=== PATIENT | female | born 1945 | race Caucasian/White ===

== ENCOUNTER → 2017-08-21 13:28 | Outpatient (CLI) | payer MEDICARE, OTHER, SELFPAY ==
--- NOTE | 2017-08-21 13:33 | XR_ITS ---
XR chest 2V Ordering Physician: Nasrin Ibarra Patient Age: 72 years: Female HISTORY: ITS.REASON: shortness of breath TECHNIQUE: PA and lateral chest COMPARISON :10/05/[address] abdomen March 2017 & [address] chest 12/08/2014 FINDINGS All compared to 10/05/2015 the area of density at the mid left lung has resolved and clear with only some minimal linear scarring at this site. No acute findings in the left chest. The right chest the density at the medial right base is a stable feature although appears slightly more dense and evident with today's technique versus the previous 2015 CXR. This same appearance seen on CT abdomen & 2014 CT chest. It Reflects the contour of medial right hemidiaphragm, along with the anterior fat pad shadow extending upward. The right mid and upper lung field appear stable since prior studies with no active disease. Heart normal size calcified aortic dominant observed. T-spine intact. IMPRESSION======= .. Nothing definitely acute. COPD. Hyperexpansion. Chronic changes bilaterally. The density at medial right base the stable feature here at, right cardiophrenic angle stable. It reflects anterior fat pad along with configuration the right hemidiaphragm.
== END ==
PROVIDERS: PCP Emergency Medicine; Visit Provider Nurse Practitioner Family
DX: R06.02 Shortness of breath (principal)
CPT/HCPCS: 71046

== ENCOUNTER → 2017-10-30 09:12 | Outpatient (REF) | payer MEDICARE, OTHER, SELFPAY ==
[2017-10-30 13:29] LABS: Basophils # 0.1 K/mm3 (0-0.2); Basophils % 0.8 % (0.1-2.0); Eosinophils # 0.2 K/mm3 (0.0-0.4); Eosinophils % 2.7 % (0.1-12.0); Hematocrit 45.1 % (37.0-47.0); Hemoglobin 14.6 g/dL (12.2-16.2); Lymphocytes # 1.4 K/mm3 (0.7-4.5); Lymphocytes % 22.8 K/mm3 (10-50); Mean Corpuscular HGB Conc 32.4 g/dL (31.8-35.4); Mean Corpuscular Hemoglobin 31.9 pg (27.0-31.2); Mean Corpuscular Volume 98.6 fl (81-99); Mean Platelet Volume 10.4 fl (7.4-10.4); Monocytes # 0.3 K/mm3 (0.1-1.0); Monocytes % 5.4 % (1.7-9.3); Neutrophils # 4.3 K/mm3 (1.8-7.8); Neutrophils % 68.2 % (37.0-80.0); Platelet Count 244 K/mm3 (142-424); Red Blood Count 4.57 M/mm3 (4.20-5.40); Red Cell Distribution Width 12.4 % (11.5-17.5); White Blood Count 6.3 K/mm3 (4.8-10.8)
[2017-10-30 13:57] LABS: Alanine Aminotransferase 24 U/L (12-78); Albumin Level 3.9 gm/dL (3.4-5.0); Albumin/Globulin Ratio 1.2 (1.1-1.8); Alkaline Phosphatase 76 U/L (46-116); Anion Gap 12.8 mEq/L (5-15); Aspartate Amino Transferase 20 U/L (15-37); Bilirubin,Total 0.4 mg/dL (0.2-1.0); Blood Urea Nitrogen 11 mg/dL (7-18); Calcium 9.5 mg/dL (8.5-10.1); Carbon Dioxide 31 mmol/L (21.0-32.0); Chloride 105 mmol/L (98-107); Chol/HDL Ratio 2.2 (1-3.5); Cholesterol 151 mg/dL (140-200); Creatinine,Serum 0.79 mg/dL (0.55-1.02); Estimated Glomerular Filt Rate 72 ml/min (>60); GFR (African American) 87 ML/MIN (>60); Globulin 3.2 gm/dl (1.3-3.2); Glucose 89 mg/dL (74-106); HDL Cholesterol 69 mg/dL (29-89); LDL Cholesterol 59 mg/dL (0-130); Potassium 4.8 mmoL/L (3.5-5.1); Sodium 144 mmol/L (136-145); T4 (Thyroxine) 10.7 ug/dl (4.7-13.3); Thyroid Stimulating Hormone 2.04 uIU/ml (0.358-3.740); Total Protein,Serum 7.1 gm/dL (6.4-8.2); Triglycerides 114 mg/dL (30-200); VLDL Cholesterol 23 mg/dL (0-40)
[2017-10-31 15:40] LABS: Vitamin D 25 Hydroxy 74.9 ng/mL (30.0-100.0)
== END ==
LOC: LAB 09:12
PROVIDERS: Visit Provider Physician Assistant
DX: I10 Essential (primary) hypertension (principal); F41.9 Anxiety disorder, unspecified; E78.5 Hyperlipidemia, unspecified; E55.9 Vitamin D deficiency, unspecified
CPT/HCPCS: 80053; 80061; 82652; 84436; 84443; 85025

== ENCOUNTER → 2017-12-21 09:01 | Outpatient (CLI) | payer MEDICARE, OTHER, SELFPAY ==
--- NOTE | 2017-12-21 09:04 | MM_ITS ---
MM Dig screening mamm BI w/CAD CAD Screening ORDERING PHYSICIAN : ALISHA Carter PATIENT AGE: 72 years GENDER: Female HISTORY. Routine screening mammogram. No hormones no new complaints. Family history. Aunt with breast cancer postmenopausal COMPARISON: Previous mammograms: November 2016, 2015, 2014.. TECHNIQUE: Standard CC and MLO images were obtained. R2 CAD reviewed. FINDINGS: Stable appearing breast bilaterally. Low-density breast with fatty replacement throughout. No dominant mass. Scattered benign calcifications and vascular calcifications bilaterally no significant change since previous studies. Bilateral follow-up in one year adequate. RIGHT BREAST:No no significant new findings of concern LEFT BREAST:No significant new findings of concern. Skin calcifications at the deep medial left breast again noted. Not of concern . IMPRESSION: . Stable mammogram. No significant new findings. Low-density breast Follow-up in one year recommended BI-RADS Category: 1 Negative RECOMMENDED FOLLOW-UP: 1YR - 1 YEAR FOLLOW-UP (A letter has been sent to the patient regarding results of the study.)
== END ==
PROVIDERS: PCP Physician Assistant; Visit Provider Physician Assistant
DX: Z12.31 Encounter for screening mammogram for malignant neoplasm of breast (principal)
CPT/HCPCS: 77067

== ENCOUNTER → 2018-11-13 10:22 | Outpatient (CLI) | payer MEDICARE, OTHER, SELFPAY ==
--- NOTE | 2018-11-13 10:37 | XR_ITS ---
EXAM: XR cervical spine 5V HISTORY: ITS.REASON: NECK PAIN ORDERING PHYSICIAN: Rell Arguelles PATIENT AGE: 73 years COMPARISON: None FINDINGS: Severe degenerative disc disease C3-C4 C5-C6 and C6-C7 with mild degenerative disc disease at C4-C5. There is facet and uncovertebral arthropathy with foraminal narrowing on the right at C3-C4 C5-C6 and C6-C7 and on left at C3-C4 C5-C6 and C6-C7. Prominent facet hypertrophy is present at C3 C4 C5 and C6. No fracture or dislocation. There are cystic changes involving the anterior arch of C1. IMPRESSION: Cervical spondylosis with degenerative disc disease and facet arthritic change with foraminal narrowing as described above
--- NOTE | 2018-11-13 10:37 | XR_ITS ---
XR shoulder LT min 2V HISTORY: ITS.REASON: NEVILLE SHOULDER PAIN ORDERING PHYSICIAN: Rell Arguelles PATIENT AGE: 73 years Comparison: None FINDINGS: No fracture or dislocation. No lytic or blastic change. Mild subacromial stenosis with minimal cortical regularity involving the humeral head laterally which may be seen with rotator cuff disease. IMPRESSION: Subacromial stenosis with cortical irregularity humeral head laterally both of which may be seen with rotator cuff disease
--- NOTE | 2018-11-13 10:37 | XR_ITS ---
XR shoulder RT min 2V HISTORY: ITS.REASON: NEVILLE SHOULDER PAIN ORDERING PHYSICIAN: Rell Arguelles PATIENT AGE: 73 years Comparison: None FINDINGS: No fracture or dislocation. No lytic or blastic change. There is normal mineralization. The joint spaces are well-preserved. No significant degenerative/arthritic changes. No erosive changes evident. There is mild subacromial stenosis. IMPRESSION: Mild subacromial stenosis otherwise negative right shoulder
== END ==
PROVIDERS: PCP Internal Medicine; Visit Provider Internal Medicine
DX: M54.2 Cervicalgia (principal); M25.512 Pain in left shoulder; M25.511 Pain in right shoulder
CPT/HCPCS: 72050; 73030

== ENCOUNTER → 2019-01-11 09:01 | Outpatient (CLI) | payer MEDICARE, OTHER, SELFPAY ==
--- NOTE | 2019-01-11 09:05 | MM_ITS ---
MM Dig screening mamm BI w/CAD ORDERING PHYSICIAN : Rell Arguelles PATIENT AGE: 73 years GENDER: Female COMPARISON: November 2016, 2015, 2017, INDICATION: ITS.Routine: SCREENING. No hormones. No new complaints Family history:. Maternal aunt breast cancer postmenopausal TECHNIQUE: Standard CC and MLO images were obtained. R2 CAD reviewed. FINDINGS: Low-density breast. Minimal fibroglandular elements again seen. Moderate generalized fatty replacement. No suspicious dominant mass or suspicious calcifications. Overall architecture is similar. Bilateral follow-up one year recommended. IMPRESSION: Stable bilateral mammogram. No significant new findings Low density fatty breast BI-RADS Category: 1 Negative RECOMMENDED FOLLOW-UP: 1YR 1 YEAR FOLLOW-UP (A letter has been sent to the patient regarding results of the study.)
== END ==
PROVIDERS: PCP Internal Medicine; Visit Provider Internal Medicine
DX: Z12.31 Encounter for screening mammogram for malignant neoplasm of breast (principal)
CPT/HCPCS: 77067

== ENCOUNTER → 2020-01-20 10:08 | Outpatient (CLI) | payer MEDICARE, OTHER, SELFPAY ==
--- NOTE | 2020-01-20 10:15 | MM_ITS ---
PROCEDURE: MM DIG SCREENING MAMM BI W/CAD Digital Breast Tomosynthesis Included CLINICAL INDICATION: SCREENING There is a history of breast cancer patient's maternal aunt. COMPARISON: [facility] DIG MAMM-SCREEN NEVILLE W/CAD from 12/19/2016 [facility] MM Dig screening mamm BI w/CAD from 12/21/2017 DIG MAMM-SCREEN NEVILLE from 01/11/2019 TECHNIQUE: Standard CC and MLO images and 3D Tomosynthesis was obtained. R2 CAD reviewed. FINDINGS: Breasts are composed primarily of fat with minimal scattered fibroglandular densities throughout each breast. There is faint arterial calcification in each breast. There are few scattered benign-appearing microcalcifications left breast. There is a mole marker left breast. There is no suspicious lesion in either breast and no suspicious microcalcifications IMPRESSION: Fibrofatty parenchyma with no suspicious lesions seen BI-RAD Category: 2 Benign Finding(s) FOLLOW-UP: 1YR 1 Year Follow-up (A letter has been sent to the patient regarding results of the study.) Dictated by: Dr. Jabari Gillette MD 01/21/2020 09:[address] Jabari Gillette MD in [place] 01/21/2020 09:53
== END ==
PROVIDERS: PCP Internal Medicine; Visit Provider Internal Medicine
DX: Z12.31 Encounter for screening mammogram for malignant neoplasm of breast (principal)
CPT/HCPCS: 77063; 77067

== ENCOUNTER → 2020-06-08 10:22 | Outpatient (CLI) | payer MEDICARE, OTHER, SELFPAY ==
[2020-06-08 12:04] LABS: Coronavirus 19 IgG Antibody Negative (Negative); Coronavirus 19 IgM Antibody Negative (Negative)
== END ==
PROVIDERS: Visit Provider Ophthalmology
DX: Z01.818 Encounter for other preprocedural examination (principal); Z98.42 Cataract extraction status, left eye
CPT/HCPCS: 36415; 86328

== ENCOUNTER 2020-06-09 08:07 | Day surgery (SDC) | payer MEDICARE, OTHER, SELFPAY ==
[2020-06-02 14:07] VITALS: BMI 24.2
[2020-06-09 08:58] VITALS: BP 154/73; PULSE 68; RESP 18; TEMP 36.6; O2SAT 97
[2020-06-09 09:51] VITALS: BP 176/81; PULSE 66; RESP 18; O2SAT 100
[2020-06-09 09:56] VITALS: BP 156/76; PULSE 63; RESP 18; O2SAT 100
[2020-06-09 10:01] VITALS: BP 159/77; PULSE 62; RESP 18; O2SAT 100
[2020-06-09 10:06] VITALS: BP 167/74; PULSE 62; RESP 18; O2SAT 100
[2020-06-09 10:11] VITALS: BP 156/75; PULSE 61; RESP 16; TEMP 36.3; O2SAT 100
== END 2020-06-09 10:14 | disposition home or self-care (01) ==
LOC: OR 08:09
PROVIDERS: PCP Internal Medicine; Visit Provider Ophthalmology
DX: H25.813 Combined forms of age-related cataract, bilateral (principal); H02.839 Dermatochalasis of unspecified eye, unspecified eyelid; J44.9 Chronic obstructive pulmonary disease, unspecified; Z85.118 Personal history of other malignant neoplasm of bronchus and lung; I10 Essential (primary) hypertension; M19.90 Unspecified osteoarthritis, unspecified site; E78.5 Hyperlipidemia, unspecified
CPT/HCPCS: 66984; V2632

== ENCOUNTER 2020-06-15 09:12 | Emergency (ER) | payer MEDICARE, OTHER, SELFPAY ==
[2020-06-15 09:13] VITALS: BP 133/58; PULSE 71; RESP 16; TEMP 36.6; O2SAT 98; BMI 24.2
[2020-06-15 09:20] VITALS: BP 133/58; PULSE 71; RESP 16; TEMP 36.7; O2SAT 98; BMI 24.0
--- NOTE | 2020-06-15 09:31 | XR_ITS ---
PROCEDURE: XR FACIAL BONES MIN 3V CLINICAL INDICATION: FALL Posttraumatic pain COMPARISON: No exams were available for comparison FINDINGS: There appears to be a nondisplaced fracture involving the tip of the nasal bone. Patient is edentulous. Other findings:None. IMPRESSION: Nondisplaced fracture involving the tip of the nasal bone Dictated by: Danilo Sanchez MD 06/15/2020 12:16 Danilo Sanchez MD in [place] 06/15/2020 12:16
--- NOTE | 2020-06-15 10:33 | HMH.EDUTC ---
[facility] [place] Disposition Clinical Impression: Nasal bone fracture Qualifiers: Encounter type: initial encounter Fracture type: closed Qualified Code(s): S02.2XXA - Fracture of nasal bones, initial encounter for closed fracture Fall Qualifiers: Encounter type: initial encounter Qualified Code(s): W19.XXXA - Unspecified fall, initial encounter Disposition: Home, Self-Care Condition on Discharge: Good Instructions: Nose Fracture, DI for Nose Fracture Additional Instructions: Follow up with ENT. I put in a referral to Dr. Dolan. Please call her office and get an appointment to follow up there. Take the antibiotics as prescribed. Follow up with your primary care doctor. GO TO THE ER FOR ANY WORSENING SYMPTOMS OR CONCERNS Prescriptions: Amoxicillin [Amoxicillin 500mg Tab] 500 mg PO TID 10 Days #30 tab Transmission Status: Received by [id number] Mupirocin [Bactroban 2% Ointment 22gm tube] 1 applicatio TP TID 7 Days #1 tube Transmission Status: Received by [id number] Referrals: Rell Arguelles [Primary Care Provider] - Gertrudis Dolan MD [Consulting Physician] - Time of Disposition: 10:41 Medical Decision Making - Medical Records Medical records reviewed: No: I reviewed the patient's medical records. - Chau Inquiry Pt receiving controlled substance: No Vital Signs: 06/15/20 09:13 06/15/20 09:20 06/15/20 10:45 Temperature 98 F 98.0 F 98.0 F Temperature Source Oral Oral Pulse Rate 71 Pulse Rate [Radial] 71 71 Respiratory Rate 16 16 16 Blood Pressure 133/58 L Blood Pressure [Right Arm] 133/58 L 133/58 L Blood Pressure Mean [Right Arm] 83 83 Blood Pressure Source [Right Arm] Automatic Cuff Blood Pressure Position [Right Arm] Sitting Sitting 02 Sat by Pulse Oximetry 98 98 Oxygen Delivery Method Room Air Room Air Orders (Tests/Meds): ED MEDICATIONS Discontinued Medications Generic Name Dose Route Start Last Admin Trade Name Freq PRN Reason Stop Dose Admin Tetanus/Reduced Diphtheria/Acell Pertussis 0.5 ml 06/15/20 09:54 06/15/20 10:10 Tet/Diphth/Pert-Adult 0.5ml Syringe IM 06/15/20 09:55 0.5 ml .ONCE ONE Administration - Radiology Data #1 Image(s): Other (facial bones) Image Reviewed: Yes I reviewed the patient's radiology image, Yes I have reviewed radiologist's interpretation Preliminary Findings: Abnormal PROCEDURE: XR FACIAL BONES MIN 3V CLINICAL INDICATION: FALL Posttraumatic pain COMPARISON: No exams were available for comparison FINDINGS: There appears to be a nondisplaced fracture involving the tip of the nasal bone. Patient is edentulous. Other findings:None. IMPRESSION: Nondisplaced fracture involving the tip of the nasal bone Dictated by: Danilo Sanchez MD 06/15/2020 12:16 Danilo Sacnhez MD in [place] 06/15/2020 12:16 [facility] [place] HPI - General Stated complaint: AO [id number] cut to nose, home accidet Time Seen by Provider: 06/15/20 10:33 Mode of Arrival: Ambulatory Source of Information: Patient Limitations: No Limitations Description of Symptoms (Recalled from Triage Doc. by RN): PATIENT STATES SHE FELL AND HIT HER RIGHT SIDE OF HEAD/FACE AND NOSE ON CONCRETE APPROX 2 HOURS AGO. SHE REPORTS SHE RECENTLY HAD CATARACT SURGERY LAST MONDAY AND IS CONCERNED. 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 She came down and hit the bridge of her nose on the concrete side walk. She denies any loss of conciousness or dizziness, loss of memory or any other neurological symptoms. She does c/o pain and swelling of the bridge of her nose. - Related Data Home Medications Medication Instructions Recorded Confirmed albuterol sulf
[2020-06-15 10:45] VITALS: BP 133/58; PULSE 71; RESP 16; TEMP 36.7; O2SAT 98
== END 2020-06-15 10:47 | disposition home or self-care (01) ==
PROVIDERS: Emergency Provider Nurse Practitioner Family; PCP Internal Medicine
DX: S02.2XXA Fracture of nasal bones, initial encounter for closed fracture (principal); W18.00XA Striking against unspecified object with subsequent fall, initial encounter; Y92.014 Private driveway to single-family (private) house as the place of occurrence of the external cause; Z23 Encounter for immunization; J45.909 Unspecified asthma, uncomplicated; I25.10 Atherosclerotic heart disease of native coronary artery without angina pectoris; K21.9 Gastro-esophageal reflux disease without esophagitis; I10 Essential (primary) hypertension; E78.5 Hyperlipidemia, unspecified
CPT/HCPCS: G0463; 70150; 90471; 90715; 99201

== ENCOUNTER → 2020-08-10 09:57 | Outpatient (CLI) | payer MEDICARE, OTHER, SELFPAY ==
[2020-08-10 11:11] LABS: Coronavirus 19 IgG Antibody Negative (Negative); Coronavirus 19 IgM Antibody Negative (Negative)
== END ==
PROVIDERS: Visit Provider Ophthalmology
DX: Z01.812 Encounter for preprocedural laboratory examination (principal); Z11.52 Encounter for screening for COVID-19; H25.11 Age-related nuclear cataract, right eye
CPT/HCPCS: 36415; 86328

== ENCOUNTER 2020-08-11 06:18 | Day surgery (SDC) | payer MEDICARE, OTHER, SELFPAY ==
[2020-08-05 08:25] VITALS: BMI 24.2
[2020-08-11] VITALS (7 sets, daily range): BP systolic 139–153; BP diastolic 63–74; PULSE 60–70; RESP 16–18; TEMP 36.3–36.6; O2SAT 97–100
== END 2020-08-11 08:24 | disposition home or self-care (01) ==
LOC: OR 06:20
PROVIDERS: PCP Internal Medicine; Visit Provider Ophthalmology
DX: H25.813 Combined forms of age-related cataract, bilateral (principal); H02.839 Dermatochalasis of unspecified eye, unspecified eyelid; H57.03 Miosis; M19.90 Unspecified osteoarthritis, unspecified site; J45.909 Unspecified asthma, uncomplicated; I10 Essential (primary) hypertension; E78.5 Hyperlipidemia, unspecified; J44.9 Chronic obstructive pulmonary disease, unspecified; Z85.118 Personal history of other malignant neoplasm of bronchus and lung; Z85.9 Personal history of malignant neoplasm, unspecified; Z86.79 Personal history of other diseases of the circulatory system; Z79.899 Other long term (current) drug therapy
CPT/HCPCS: 66982; V2632

== ENCOUNTER 2020-12-03 19:35 | Emergency (ER) | payer MEDICARE, OTHER, SELFPAY ==
[2020-12-03] VITALS (7 sets, daily range): BP systolic 138–215; BP diastolic 63–95; PULSE 72–80; RESP 13–18; TEMP 36.4–36.8; O2SAT 96–99; BMI 24.7
--- NOTE | 2020-12-03 19:45 | ECG_ITS ---
APPROVED REPORT Exam: Resting ECG HR:77 bpm ECG Measurements Heart Rate 77 AXES AK 138 P 83 QRSd 70 QRS 81 QT 406 T 56 QTc 459 Conclusion Normal sinus rhythm Left ventricular hypertrophy with repolarization abnormality Abnormal ECG Electronically signed by : John Balderas, 12/04/2020 14:59:33
--- NOTE | 2020-12-03 20:19 | CT_ITS ---
PROCEDURE INFORMATION: Exam: CT Abdomen And Pelvis With Contrast Exam date and time: 12/03/2020 8:19 PM Age: 75 years old Clinical indication: Abdominal pain; Acute; Additional info: Abdominal pain, vomiting TECHNIQUE: Imaging protocol: Computed tomography of the abdomen and pelvis with contrast. Radiation optimization: All CT scans at this facility use at least one of these dose optimization techniques: automated exposure control; mA and/or kV adjustment per patient size (includes targeted exams where dose is matched to clinical indication); or iterative reconstruction. Contrast material: ISOVUE; Contrast volume: 75 ml; Contrast route: IV; COMPARISON: ABDPELW/O CT ABD PELVIS W/O CONTRAST 04/01/2017 1:26 PM FINDINGS: Lungs: Nonspecific bibasilar streaky opacities suggest atelectasis or parenchymal scarring. A few adjacent areas of cicatricial bronchiolectasis suggest parenchymal scarring. Heart: The visualized portions of the heart are unremarkable. There is no evidence of pericardial fluid collections. Mediastinal space: A small hiatal hernia is present. The remainder of the stomach is otherwise within range of normal. There is a small amount of fluid present in the distal esophagus. Apparent mild distal esophageal wall thickening could be on the basis of incomplete distension, an small hiatal hernia but cannot exclude mild esophagitis. Liver: There is diffuse decrease in hepatic parenchymal density consistent with fatty infiltration. Gallbladder and bile ducts: The gallbladder is normal. Pancreas: The pancreas is normal. Spleen: The spleen is normal. Adrenal glands: There is a a small nodule posteriorly in the left adrenal gland measuring approximately 6.5 mm. The density of this lesion does not allow definitive diagnosis of a benign adrenal adenoma on this enhanced examination. The adrenal glands are otherwise normal. Kidneys and ureters: There are a few tiny bilateral small renal hypodensities which are too small to accurately characterize. Statistically, these may be cysts. No hydronephrosis. Stomach and bowel: There is a small benign duodenal diverticulum. The duodenum is otherwise unremarkable. Lack of gastrointestinal contrast limits evaluation of bowel. Mild diverticulosis is present in the distal colon. There is no evidence of colitis/diverticulitis. Unopacified loops of small bowel are within range of normal. Apparent mild distal gastric mural thickening could be on the basis of incomplete distension but cannot exclude gastritis or other inflammatory or infiltrative process. Correlate clinically. Appendix: No evidence of appendicitis. Intraperitoneal space: There is no evidence of free intraperitoneal or pelvic fluid. No evidence of intraperitoneal free air. Vasculature: The aorta and iliac arteries demonstrate moderate to severe atherosclerotic calcification. There is no evidence of an abdominal aortic aneurysm. There is no evidence of dissection, leak, rupture, or other acute vascular pathology. There are numerous benign phleboliths in the pelvis. Lymph nodes: No enlarged lymph nodes. Urinary bladder: The bladder is normal. Reproductive: The uterus is either atrophic or absent. The left ovary is normal. The right ovary is normal. Bones/joints: The thoracolumbar spine demonstrates mild degenerative changes at multiple levels. There is no evidence of acute fracture. Soft tissues: There is a tiny fat-containing umbilical hernia. There is an ovoid fat density the structure measuring approximately 4.5 by 1.3 by 4.1 cm along the left posterolateral abdominal wall musculature which is most consistent with lipoma. IMPRESSION: 1. S
[2020-12-03 20:31] LABS: Basophils # 0.1 K/mm3 (0-0.2); Basophils % 0.4 % (0.1-2.0); Eosinophils # 0.1 K/mm3 (0.0-0.4); Eosinophils % 0.4 % (0.1-12.0); Hematocrit 44.2 % (37.0-47.0); Hemoglobin 14.7 g/dL (12.2-16.2); Lymphocytes # 1.7 K/mm3 (0.7-4.5); Lymphocytes % 10.3 % (10-50); Mean Corpuscular HGB Conc 33.2 g/dL (31.8-35.4); Mean Corpuscular Hemoglobin 30.9 pg (27.0-31.2); Mean Corpuscular Volume 93.2 fl (81-99); Mean Platelet Volume 9.9 fl (7.4-10.4); Monocytes # 0.6 K/mm3 (0.1-1.0); Monocytes % 3.4 % (1.7-9.3); Neutrophils # 13.8 K/mm3 (1.8-7.8); Neutrophils % 85.4 % (37.0-80.0); Platelet Count 236 K/mm3 (142-424); Red Blood Count 4.75 M/mm3 (4.20-5.40); Red Cell Distribution Width 12.8 % (11.5-17.5); White Blood Count 16.2 K/mm3 (4.8-10.8)
[2020-12-03 20:32] LABS: Chloride 101 mmol/L (98-107); Potassium 3.9 mmoL/L (3.5-5.1); Sodium 138 mmol/L (136-145)
[2020-12-03 20:34] LABS: Blood Urea Nitrogen 15 mg/dl (7-17); Creatinine Clearance Estimated 53 mL/min (50-200); Estimated Glomerular Filt Rate 61 ml/min (>60); GFR (African American) 74 ML/MIN (>60)
[2020-12-03 20:35] LABS: Alanine Aminotransferase 19 U/L (12-78); Albumin Level 4.8 g/dl (3.5-5.0); Albumin/Globulin Ratio 1.5 (1.1-1.8); Alkaline Phosphatase 84 U/L (38-126); Anion Gap 12.9 mEq/L (5-15); Aspartate Amino Transferase 33 U/L (14-36); Bilirubin,Total 0.6 mg/dl (0.2-1.3); Calcium 9.3 mg/dl (8.4-10.2); Carbon Dioxide 28 mmol/L (22.0-30.0); Globulin 3.1 g/dL (1.3-3.2); Glucose 126 mg/dl (74-100); MANUAL DIFFERENTIAL MANUAL DIFFERENTIAL (MANUAL DIFF); Total Protein,Serum 7.9 g/dl (6.3-8.2)
[2020-12-03 20:52] LABS: Lipase 1929 U/L (23-300)
[2020-12-03 21:05] LABS: Eosinophils % 2 % (0-3); Lymphocytes % 12 % (10-50); Monocytes % 5 % (2-9); Neutrophils % 81 % (42-76); Platelet Estimate Normal; RBC Morphology Normal; Total Cells Counted 100
--- NOTE | 2020-12-03 21:50 | HMH.EDGENADL ---
ED Disposition Clinical Impression: Pancreatitis Qualifiers: Chronicity: acute Pancreatitis type: unspecified pancreatitis type Acute pancreatitis complication: no infection or necrosis Qualified Code(s): K85.90 - Acute pancreatitis without necrosis or infection, unspecified Disposition: Home, Self-Care Condition on Discharge: Good Instructions: Acute Pancreatitis, Clear Liquid Diet Additional Instructions: Have a clear liquid diet for 24-48 hours. Return if you have intractable vomiting or pain. Zofran for nausea. Prescriptions: Ondansetron [Zofran 4mg ODT] 4 mg PO TIDP PRN #8 tab PRN Reason: Nausea And Vomiting Prescription Printed Referrals: Rell Arguelles [Primary Care Provider] - - Critical Care Critical Care Time: No Attestation: On 12/03/20, the high probability of a clinically significant, sudden or life threatening deterioration of the following system(s) required my full and direct attention, intervention and personal management. The time I documented below is in addition to time spent performing reported procedures but includes the following listed in this critical care notation. Medical Decision Making - Chau Inquiry Pt receiving controlled substance: No Vital Signs: 12/03/20 19:37 12/03/20 20:48 12/03/20 21:15 Temperature 97.8 F 98.2 F Temperature Source Oral Pulse Rate 76 72 Pulse Rate [Right] 78 Respiratory Rate 18 17 15 Blood Pressure 181/76 H 174/82 H Blood Pressure [Right Arm] 215/95 H Blood Pressure Mean [Right Arm] 135 Blood Pressure Source Automatic Cuff Automatic Cuff Blood Pressure Position Sitting Sitting 02 Sat by Pulse Oximetry 96 97 98 Oxygen Delivery Method Room Air Room Air 12/03/20 21:30 12/03/20 22:00 12/03/20 22:31 Temperature Temperature Source Pulse Rate 80 74 74 Pulse Rate [Right] Respiratory Rate 14 13 16 Blood Pressure 149/63 H 150/72 H 138/63 Blood Pressure [Right Arm] Blood Pressure Mean [Right Arm] Blood Pressure Source Automatic Cuff Automatic Cuff Blood Pressure Position Sitting Sitting Sitting 02 Sat by Pulse Oximetry 99 98 97 Oxygen Delivery Method Room Air Room Air Room Air 12/03/20 23:20 Temperature 97.6 F Temperature Source Oral Pulse Rate 78 Pulse Rate [Right] Respiratory Rate 16 Blood Pressure 158/81 H Blood Pressure [Right Arm] Blood Pressure Mean [Right Arm] Blood Pressure Source Automatic Cuff Blood Pressure Position Sitting 02 Sat by Pulse Oximetry Oxygen Delivery Method Room Air - Lab Data Lab Results 12/03/20 18:55: WBC 16.2 H, RBC 4.75, Hgb 14.7, Hct 44.2, MCV 93.2, MCH 30.9, MCHC 33.2, RDW 12.8, Plt Count 236, MPV 9.9, Neut % (Auto) 85.4 H, Lymph % (Auto) 10.3, [place] % (Auto) 3.4, Eos % (Auto) 0.4, Baso % (Auto) 0.4, Neut # (Auto) 13.8 H, Lymph # (Auto) 1.7, [place] # (Auto) 0.6, Eos # (Auto) 0.1, Baso # (Auto) 0.1, Total Counted 100, Neutrophils % (Manual) 81 H, Lymphocytes % (Manual) 12, Monocytes % (Manual) 5, Eosinophils % (Manual) 2, Platelet Estimate Normal, RBC Morphology Normal 12/03/20 18:55: Sodium 138, Potassium 3.9, Chloride 101, Carbon Dioxide 28, Anion Gap 12.9, BUN 15, Creatinine 0.90, Estimated Creat Clear 53, Estimated GFR 61, Est GFR ( Amer) 74, Glucose 126 H, Calcium 9.3, Total Bilirubin 0.6, AST 33, ALT 19, Alkaline Phosphatase 84, Total Protein 7.9, Albumin 4.8, Globulin 3.1, Albumin/Globulin Ratio 1.5, Lipase 1929 H Result diagrams: 12/03/20 18:55 12/03/20 18:55 Orders (Tests/Meds): ED MEDICATIONS Discontinued Medications Generic Name Dose Route Start Last Admin Trade Name Jose Manuelq PRN Reason Stop Dose Admin Famotidine 20 mg 12/03/20 20:12 12/03/20 20:13 Famotidine 20mg/2ml Vial IV 12/03/20 20:13 20 mg ONCE ONE Administration Sodium Chloride 1,000 mls @ 999 mls/hr 12/03/20 20:15 12/03/20 20:13 Sod Chlor 0.9% 1000ml Bag IV 12/03/20 21:15 999 mls/hr .Q1H1M ADRIAN Administration Lactated Ringer's 1,000 mls @ 999 mls/hr 12/03/20 20:30
== END 2020-12-03 23:24 | disposition home or self-care (01) ==
PROVIDERS: Emergency Provider Emergency Medicine; PCP Internal Medicine
DX: K85.90 Acute pancreatitis without necrosis or infection, unspecified (principal); I10 Essential (primary) hypertension; E78.5 Hyperlipidemia, unspecified; I25.10 Atherosclerotic heart disease of native coronary artery without angina pectoris; K21.9 Gastro-esophageal reflux disease without esophagitis; J44.9 Chronic obstructive pulmonary disease, unspecified; Z79.899 Other long term (current) drug therapy
CPT/HCPCS: 74177; 80053; 83690; 85007; 85025; 93005; 96365; 96375; 99283; J2405; Q9967

== ENCOUNTER → 2020-12-10 09:35 | Outpatient (CLI) | payer MEDICARE, OTHER, SELFPAY ==
--- NOTE | 2020-12-10 09:41 | US_ITS ---
PROCEDURE: US ABDOMEN COMPLETE CLINICAL INDICATION: IDIOPATHIC ACUTE PANCREATITIS W/O INFO OR NECROSIS COMPARISON: US RUQ US RUQ-(ABD LTD)1ORGAN/QUAD/FU from 03/11/2014 FINDINGS: PANCREAS: The visualized pancreas is unremarkable. The tail is partially obscured. LIVER: The liver demonstrates homogeneous echotexture and appears unremarkable. No focal liver lesions are noted. No intra or extrahepatic biliary dilation. The portal vein is patent. RIGHT KIDNEY: Unremarkable. Normal size and echogenicity. No hydronephrosis LEFT KIDNEY: Unremarkable. Normal size and echogenicity. No hydronephrosis GALLBLADDER: Sludge is noted in the gallbladder. Otherwise the gallbladder appears unremarkable without evidence of gallbladder wall thickening or pericholecystic fluid. AORTA: Normal in caliber. SPLEEN: Unremarkable. Normal size and echogenicity ASCITES: None demonstrated. IMPRESSION: Sludge in the gallbladder. Otherwise unremarkable study. Dictated by: Maya Camilo 12/10/2020 13:37 Maya Camilo in [place] 12/10/2020 13:37
== END ==
PROVIDERS: PCP Internal Medicine; Visit Provider Internal Medicine
DX: K85.00 Idiopathic acute pancreatitis without necrosis or infection (principal)
CPT/HCPCS: 76700

== ENCOUNTER → 2021-03-15 12:44 | Outpatient (POV) | payer MEDICARE, OTHER, SELFPAY | PROVIDERS: Visit Provider Nurse Practitioner Family | DX: Z00.00 Encounter for general adult medical examination without abnormal findings (principal) ==

== ENCOUNTER → 2021-03-31 09:41 | Outpatient (CLI) | payer MEDICARE, OTHER, SELFPAY ==
--- NOTE | 2021-03-31 09:43 | MM_ITS ---
PROCEDURE: MM DIG SCREENING MAMM BI W/CAD Digital Breast Tomosynthesis Included CLINICAL INDICATION: SCREENING COMPARISON: [facility] MM Dig screening mamm BI w/CAD from 12/21/2017 MG DIG MAMM-SCREEN [place]EVIL[place] from 01/11/2019 MG MM DIG SCREENING MAMM BI W/CAD from 01/20/2020 TECHNIQUE: Standard CC and MLO images and 3D Tomosynthesis was obtained. R2 CAD reviewed. FINDINGS: The breasts are almost entirely fatty. Scattered benign-appearing calcifications are noted. No suspicious appearing mass, malignant-appearing microcalcification, architectural distortion, or skin thickening. No significant change with no evidence of malignancy. IMPRESSION: Benign findings. BI-RAD Category: 2 Benign Finding FOLLOW-UP: 1 YR 1 Year Follow-up (A letter has been sent to the patient regarding results of the study.) Dictated by: Danilo Sanchez MD 04/12/2021 10:58 Danilo Sanchez MD in [place] 04/12/2021 10:58
== END ==
PROVIDERS: PCP Internal Medicine; Visit Provider Internal Medicine
DX: Z12.31 Encounter for screening mammogram for malignant neoplasm of breast (principal)
CPT/HCPCS: 77063; 77067

== ENCOUNTER → 2021-04-08 13:00 | Outpatient (CLI) | payer MEDICARE, OTHER, SELFPAY | PROVIDERS: Visit Provider Internal Medicine Gastroenterology | DX: Z01.812 Encounter for preprocedural laboratory examination (principal); Z20.822 Contact with and (suspected) exposure to COVID-19; U07.1 COVID-19; Z13.810 Encounter for screening for upper gastrointestinal disorder | CPT/HCPCS: U0003 ==

== ENCOUNTER → 2021-06-18 12:45 | Outpatient (CLI) | payer MEDICARE, OTHER, SELFPAY ==
[2021-06-18 14:31] LABS: Chloride 102 mmol/L (98-107); Sodium 140 mmol/L (136-145)
[2021-06-18 14:32] LABS: Potassium 4.8 mmoL/L (3.5-5.1)
[2021-06-18 14:34] LABS: Alanine Aminotransferase 20 U/L (12-78); Alkaline Phosphatase 63 U/L (38-126); Anion Gap 9.8 mEq/L (5-15); Aspartate Amino Transferase 34 U/L (14-36); Bilirubin,Total 0.4 mg/dl (0.2-1.3); Blood Urea Nitrogen 15 mg/dl (7-17); Carbon Dioxide 33 mmol/L (22.0-30.0); Estimated Glomerular Filt Rate 70 ml/min (>60); GFR (African American) 85 ML/MIN (>60)
[2021-06-18 14:35] LABS: Albumin Level 4.1 g/dl (3.5-5.0); Albumin/Globulin Ratio 1.7 (1.1-1.8); Calcium 9.2 mg/dl (8.4-10.2); Chol/HDL Ratio 2.8 (1-3.5); Cholesterol 162 mg/dl (140-200); Globulin 2.4 g/dL (1.3-3.2); Glucose 72 mg/dl (74-100); HDL Cholesterol 58 mg/dl (40-60); Total Protein,Serum 6.5 g/dl (6.3-8.2); Triglycerides 139 mg/dl (30-150); VLDL Cholesterol 28 mg/dL (0-40)
[2021-06-18 14:46] LABS: Direct LDL Cholesterol 66.72 mg/dL (100-129)
[2021-06-18 15:15] LABS: 25-OH Vitamin D, Total 73.5 ng/mL (30-100)
== END ==
PROVIDERS: Visit Provider Internal Medicine
DX: I25.10 Atherosclerotic heart disease of native coronary artery without angina pectoris (principal); I10 Essential (primary) hypertension; E78.5 Hyperlipidemia, unspecified; J44.9 Chronic obstructive pulmonary disease, unspecified; E53.8 Deficiency of other specified B group vitamins; E55.9 Vitamin D deficiency, unspecified
CPT/HCPCS: 80053; 80061; 82306

== ENCOUNTER → 2021-08-09 09:58 | Outpatient (CLI) | payer MEDICARE, OTHER, SELFPAY | PROVIDERS: PCP Internal Medicine; Visit Provider Nurse Practitioner | DX: U07.1 COVID-19 (principal) | CPT/HCPCS: C9803; U0003; U0005 ==

== ENCOUNTER 2021-10-31 21:49 | Emergency (ER) | payer MEDICARE, OTHER, SELFPAY ==
[2021-10-31 21:51] VITALS: BP 166/78; PULSE 67; RESP 18; TEMP 36.8; O2SAT 96; BMI 24.6
[2021-10-31 22:33] VITALS: BMI 24.6
--- NOTE | 2021-10-31 22:38 | CT_ITS ---
PROCEDURE INFORMATION: Exam: CTA Chest With Contrast Exam date and time: 10/31/2021 11:20 PM Age: 76 years old Clinical indication: Pain; Left-sided; Prior surgery; Surgery date: 6+ months; Surgery type: Lung cancer surgery; Additional info: Shortness of breath TECHNIQUE: Imaging protocol: Computed tomographic angiography of the chest with contrast. 3D rendering (Not supervised by radiologist): MIP and/or 3D reconstructed images were created by the technologist. Radiation optimization: All CT scans at this facility use at least one of these dose optimization techniques: automated exposure control; mA and/or kV adjustment per patient size (includes targeted exams where dose is matched to clinical indication); or iterative reconstruction. Contrast material: ISOVUE 370; Contrast volume: 75 ml; Contrast route: INTRAVENOUS (IV); COMPARISON: [facility] CT CHEST W/O CONTRAST 03/27/2015 12:51 PM FINDINGS: Pulmonary arteries: Normal. No pulmonary emboli. Aorta: Unremarkable. No aortic aneurysm. No aortic dissection. Lungs: Unremarkable. No consolidation. No masses. Pleural spaces: Unremarkable. No pneumothorax. No pleural effusion. Heart: Unremarkable. No cardiomegaly. No pericardial effusion. Lymph nodes: Unremarkable. No enlarged lymph nodes. Bones/joints: Unremarkable. No acute fracture. Soft tissues: Unremarkable. IMPRESSION: No acute findings.
--- NOTE | 2021-10-31 22:38 | XR_ITS ---
PROCEDURE INFORMATION: Exam: XR Chest Exam date and time: 10/31/2021 11:07 PM Age: 76 years old Clinical indication: Pain; Left-sided; Prior surgery; Surgery date: 6+ months; Surgery type: Lung cancer surgery; Additional info: Pain and shortness of breath TECHNIQUE: Imaging protocol: XR of the chest. Views: 2 views. COMPARISON: DX CXR2V XR chest 2V 08/21/2017 2:14 PM FINDINGS: Lungs: Scattered areas of atelectasis and scarring in the lung bases. No consolidation. Pleural spaces: Unremarkable. No pleural effusion. No pneumothorax. Heart/Mediastinum: Cardiomegaly. Bones/joints: Unremarkable. IMPRESSION: No acute findings.
--- NOTE | 2021-10-31 22:38 | ECG_ITS ---
APPROVED REPORT Exam: Resting ECG HR:63 bpm ECG Measurements Heart Rate 63 AXES LA 132 P 80 QRSd 74 QRS 70 QT 434 T 66 QTc 442 Conclusion SINUS RHYTHM NORMAL ECG UNCONFIRMED REPORT Electronically signed by : John Balderas MD 11/01/2021 08:13:33
[2021-10-31 22:53] LABS: Basophils % 0.4 % (0.1-2.0); Eosinophils # 0.1 K/mm3 (0.0-0.4); Eosinophils % 0.6 % (0.1-12.0); Hematocrit 44.4 % (37.0-47.0); Hemoglobin 14.1 g/dL (12.2-16.2); Lymphocytes # 1.8 K/mm3 (0.7-4.5); Lymphocytes % 15.3 % (10-50); Mean Corpuscular HGB Conc 31.7 g/dL (31.8-35.4); Mean Corpuscular Hemoglobin 31.6 pg (27.0-31.2); Mean Corpuscular Volume 99.7 fl (81-99); Mean Platelet Volume 10.9 fl (7.4-10.4); Monocytes # 0.5 K/mm3 (0.1-1.0); Neutrophils # 9.3 K/mm3 (1.8-7.8); Neutrophils % 79.8 % (37.0-80.0); Platelet Count 212 K/mm3 (142-424); Red Blood Count 4.46 M/mm3 (4.20-5.40); Red Cell Distribution Width 12.8 % (11.5-17.5); White Blood Count 11.7 K/mm3 (4.8-10.8)
[2021-10-31 22:58] LABS: Alanine Aminotransferase 22 U/L (12-78); Albumin Level 4.2 g/dl (3.5-5.0); Albumin/Globulin Ratio 1.4 (1.1-1.8); Alkaline Phosphatase 67 U/L (38-126); Anion Gap 6.2 mEq/L (5-15); Aspartate Amino Transferase 26 U/L (14-36); Bilirubin,Total 0.3 mg/dl (0.2-1.3); Blood Urea Nitrogen 18 mg/dl (7-17); Calcium 8.8 mg/dl (8.4-10.2); Carbon Dioxide 32 mmol/L (22.0-30.0); Chloride 105 mmol/L (98-107); Creatinine Clearance Estimated 52 mL/min (50-200); Estimated Glomerular Filt Rate 82 ml/min (>60); GFR (African American) 99 ML/MIN (>60); Globulin 2.9 g/dL (1.3-3.2); Glucose 106 mg/dl (74-100); Lactic Acid 0.8 mmol/L (0.7-2.1); Potassium 4.2 mmoL/L (3.5-5.1); Sodium 139 mmol/L (136-145); Total Protein,Serum 7.1 g/dl (6.3-8.2)
[2021-10-31 23:13] LABS: Troponin I < 0.01 ng/ml (0.00-0.034)
[2021-10-31 23:16] LABS: Erythrocyte Sedimentation Rate 10 mm/hr (0-30); Procalcitonin 0.039 ng/mL (0.0-2.0)
--- NOTE | 2021-10-31 23:35 | HMH.EDGENADL ---
ED Disposition Clinical Impression: Pleurisy Disposition: Home, Self-Care Condition on Discharge: Good Instructions: DI for Pleurisy Additional Instructions: see pcp for follow up Referrals: Rell Arguelles [Primary Care Provider] - - Critical Care Critical Care Time: No Attestation: On 10/31/21, the high probability of a clinically significant, sudden or life threatening deterioration of the following system(s) required my full and direct attention, intervention and personal management. The time I documented below is in addition to time spent performing reported procedures but includes the following listed in this critical care notation. Medical Decision Making - Medical Records Medical records reviewed: Yes: I reviewed the patient's medical records. - Chau Inquiry Pt receiving controlled substance: No Vital Signs: 10/31/21 21:51 Temperature 98.2 F Temperature Source Oral Pulse Rate [Right] 67 Respiratory Rate 18 Blood Pressure [Right Arm] 166/78 H Blood Pressure Mean [Right Arm] 107 Blood Pressure Source [Right Arm] Automatic Cuff 02 Sat by Pulse Oximetry 96 Oxygen Delivery Method Room Air - Lab Data Lab results reviewed: Yes: I reviewed the patient's lab results. Lab Results 10/31/21 22:30: WBC 11.7 H, RBC 4.46, Hgb 14.1, Hct 44.4, MCV 99.7 H, MCH 31.6 H, MCHC 31.7 L, RDW 12.8, Plt Count 212, MPV 10.9 H, Neut % (Auto) 79.8, Lymph % (Auto) 15.3, [place] % (Auto) 4.0, Eos % (Auto) 0.6, Baso % (Auto) 0.4, Neut # (Auto) 9.3 H, Lymph # (Auto) 1.8, [place] # (Auto) 0.5, Eos # (Auto) 0.1, Baso # (Auto) 0.0, ESR 10 10/31/21 22:30: Sodium 139, Potassium 4.2, Chloride 105, Carbon Dioxide 32 H, Anion Gap 6.2, BUN 18 H, Creatinine 0.70, Estimated Creat Clear 52, Estimated GFR 82, Est GFR ( Amer) 99, Glucose 106 H, Calcium 8.8, Total Bilirubin 0.3, AST 26, ALT 22, Alkaline Phosphatase 67, Troponin I < 0.01, C-Reactive Protein 1.0, Total Protein 7.1, Albumin 4.2, Globulin 2.9, Albumin/Globulin Ratio 1.4 10/31/21 22:30: Lactate 0.8 10/31/21 22:30: Procalcitonin 0.039 Result diagrams: 10/31/21 22:30 10/31/21 22:30 Orders (Tests/Meds): ED MEDICATIONS Generic Name Dose Route Start Last Admin Trade Name Freq PRN Reason Stop Dose Admin Sodium Chloride 1,000 mls @ 999 mls/hr 10/31/21 23:00 10/31/21 23:01 Sod Chlor 0.9% 1000ml Bag IV 11/01/21 00:00 999 mls/hr .Q1H1M ADRIAN Administration Sodium Chloride 3 ml 10/31/21 22:45 Sodium Chloride 3% 15ml Neb IH 11/30/21 22:44 ONCE PRN INDUCE SPUTUM COLLECTION Discontinued Medications Generic Name Dose Route Start Last Admin Trade Name Freq PRN Reason Stop Dose Admin Iopamidol 75 ml 10/31/21 23:30 10/31/21 23:31 Iopamidol-370 (76%);100ml Bottle IV 10/31/21 23:31 75 ml ONCE ONE Administration Ketorolac Tromethamine 30 mg 10/31/21 22:46 10/31/21 23:01 Ketorolac 30mg/Ml Vial IV 10/31/21 22:47 30 mg ONCE ONE Administration Sodium Chloride 10 ml 10/31/21 23:30 10/31/21 23:31 Sodium Chloride 0.9% 10ml Syr (Rad Only) IV 10/31/21 23:31 10 ml ONCE ONE Administration ORDERS Category Date Time Status Rapid PCR Covid and Flu A/B Stat Lab 10/31/21 22:45 Ordered Troponin I Q3H Lab 11/01/21 01:45 Ordered Troponin I Q3H Lab 11/01/21 04:45 Ordered Urinalysis and Microscopic Stat Lab 10/31/21 22:45 Ordered Blood Culture Stat Micro 10/31/21 22:30 Received Sputum Culture & Gram Stain Stat Micro 10/31/21 22:45 Ordered - Radiology Data #1 Image(s): Chest Image Reviewed: Yes I have reviewed radiologist's interpretation Preliminary Findings: Normal/NAD - CT Data CT Scan: Chest Time Received: 00:[address] Reviewed: Yes: I have viewed the radiologist's interpretation Preliminary Findings: Normal/NAD - ECG Data Tracing #1 Normal Sinus Rhythm: Yes Ischemic changes: non-specific ST-T wave changes - CLARA Score for Non-Stemi Age of Patient: 70-79 years old Heart Rate: 50-69 bpm Sys
[2021-11-01 00:07] VITALS: BP 158/72; PULSE 64; RESP 18; TEMP 36.6; O2SAT 97
== END 2021-11-01 00:09 | disposition home or self-care (01) ==
PROVIDERS: Emergency Provider Emergency Medicine; PCP Internal Medicine
DX: R07.81 Pleurodynia (principal); I10 Essential (primary) hypertension; E78.5 Hyperlipidemia, unspecified; I25.10 Atherosclerotic heart disease of native coronary artery without angina pectoris; K21.9 Gastro-esophageal reflux disease without esophagitis; E55.9 Vitamin D deficiency, unspecified; J44.9 Chronic obstructive pulmonary disease, unspecified; Z86.16 Personal history of COVID-19; Z79.82 Long term (current) use of aspirin; Z79.51 Long term (current) use of inhaled steroids; Z79.899 Other long term (current) drug therapy; Z95.5 Presence of coronary angioplasty implant and graft
CPT/HCPCS: 71046; 71275; 80053; 83605; 84145; 84484; 85025; 85651; 86140; 87040; 93005; 96361; 96365; 96372; 96374; 96375; 99285; Q9967

== ENCOUNTER → 2021-12-24 13:16 | Outpatient (CLI) | payer MEDICARE, OTHER, SELFPAY ==
[2021-12-24 14:19] LABS: Basophils # 0.1 K/mm3 (0-0.2); Basophils % 1.4 % (0.1-2.0); Eosinophils # 0.2 K/mm3 (0.0-0.4); Eosinophils % 3.4 % (0.1-12.0); Hematocrit 43.6 % (37.0-47.0); Hemoglobin 14.6 g/dL (12.2-16.2); Lymphocytes # 1.7 K/mm3 (0.7-4.5); Lymphocytes % 28.6 % (10-50); Mean Corpuscular HGB Conc 33.5 g/dL (31.8-35.4); Mean Corpuscular Hemoglobin 32.6 pg (27.0-31.2); Mean Corpuscular Volume 97.2 fl (81-99); Mean Platelet Volume 10.9 fl (7.4-10.4); Monocytes # 0.4 K/mm3 (0.1-1.0); Monocytes % 6.6 % (1.7-9.3); Neutrophils # 3.7 K/mm3 (1.8-7.8); Neutrophils % 60.1 % (37.0-80.0); Platelet Count 194 K/mm3 (142-424); Red Blood Count 4.49 M/mm3 (4.20-5.40); Red Cell Distribution Width 13.1 % (11.5-17.5); White Blood Count 6.1 K/mm3 (4.8-10.8)
[2021-12-24 14:42] LABS: Alanine Aminotransferase 25 U/L (12-78); Albumin/Globulin Ratio 1.7 (1.1-1.8); Alkaline Phosphatase 75 U/L (38-126); Anion Gap 10.4 mEq/L (5-15); Aspartate Amino Transferase 30 U/L (14-36); Bilirubin,Total 0.2 mg/dl (0.2-1.3); Blood Urea Nitrogen 12 mg/dl (7-17); Calcium 9.2 mg/dl (8.4-10.2); Carbon Dioxide 30 mmol/L (22.0-30.0); Chloride 103 mmol/L (98-107); Chol/HDL Ratio 3.2 (1-3.5); Cholesterol 199 mg/dl (140-200); Estimated Glomerular Filt Rate 70 ml/min (>60); GFR (African American) 85 ML/MIN (>60); Globulin 2.4 g/dL (1.3-3.2); Glucose 81 mg/dl (74-100); HDL Cholesterol 62 mg/dl (40-60); Potassium 4.4 mmoL/L (3.5-5.1); Sodium 139 mmol/L (136-145); Total Protein,Serum 6.4 g/dl (6.3-8.2); Triglycerides 134 mg/dl (30-150); VLDL Cholesterol 27 mg/dL (0-40)
[2021-12-24 14:54] LABS: Direct LDL Cholesterol 96.14 mg/dL (100-129)
== END ==
PROVIDERS: Visit Provider Internal Medicine
DX: I25.10 Atherosclerotic heart disease of native coronary artery without angina pectoris (principal); I10 Essential (primary) hypertension; E78.5 Hyperlipidemia, unspecified; J44.1 Chronic obstructive pulmonary disease with (acute) exacerbation; E53.8 Deficiency of other specified B group vitamins; E55.9 Vitamin D deficiency, unspecified
CPT/HCPCS: 80053; 80061; 85025

== ENCOUNTER → 2022-04-22 09:33 | Outpatient (CLI) | payer MEDICARE, OTHER, SELFPAY ==
--- NOTE | 2022-04-22 09:42 | MM_ITS ---
PROCEDURE INFORMATION: Exam: MG Bilateral Screening 3D Mammography Exam date and time: 04/22/2022 9:46 AM Age: 76 years old Clinical indication: Screening examination TECHNIQUE: Imaging protocol: Bilateral Screening tomosynthesis and 2D mammography including computer-aided detection (CAD) when performed. COMPARISON: 1. MG MM DIG SCREENING MAMM BI W/CAD 03/31/2021 9:48 AM 2. MG MM DIG SCREENING MAMM BI W/CAD 01/20/2020 10:15 AM FINDINGS: MAMMOGRAPHY: Breast composition: The breasts are almost entirely fatty. Mass: None. Architectural distortion: None. Calcifications: No suspicious calcifications. Asymmetric density: None. Skin thickening: None. Axillary adenopathy: None. IMPRESSION: No mammographic evidence of malignancy. Annual screening is recommended unless otherwise clinically indicated. ASSESSMENT: BI-RADS Category 1: Negative
== END ==
PROVIDERS: PCP Internal Medicine; Visit Provider Internal Medicine
DX: Z12.31 Encounter for screening mammogram for malignant neoplasm of breast (principal)
CPT/HCPCS: 77063; 77067

== ENCOUNTER → 2022-07-01 13:18 | Outpatient (CLI) | payer MEDICARE, OTHER, SELFPAY ==
[2022-07-01 18:38] LABS: Alanine Aminotransferase 22 U/L (12-78); Albumin Level 4.4 g/dl (3.5-5.0); Albumin/Globulin Ratio 1.6 (1.1-1.8); Alkaline Phosphatase 63 U/L (38-126); Anion Gap 12.4 mEq/L (5-15); Aspartate Amino Transferase 46 U/L (14-36); Bilirubin,Total 0.9 mg/dl (0.2-1.3); Blood Urea Nitrogen 17 mg/dl (7-17); Calcium 9.9 mg/dl (8.4-10.2); Carbon Dioxide 27 mmol/L (22.0-30.0); Chloride 104 mmol/L (98-107); Chol/HDL Ratio 3.2 (1-3.5); Cholesterol 176 mg/dl (140-200); Estimated Glomerular Filt Rate 70 ml/min (>60); GFR (African American) 85 ML/MIN (>60); Globulin 2.8 g/dL (1.3-3.2); Glucose 64 mg/dl (74-100); HDL Cholesterol 55 mg/dl (40-60); Potassium 5.4 mmoL/L (3.5-5.1); Sodium 138 mmol/L (136-145); Total Protein,Serum 7.2 g/dl (6.3-8.2); Triglycerides 138 mg/dl (30-150); VLDL Cholesterol 28 mg/dL (0-40)
[2022-07-01 18:49] LABS: Direct LDL Cholesterol 84.11 mg/dL (100-129)
[2022-07-01 18:59] LABS: 25-OH Vitamin D, Total 38.8 ng/mL (30-100)
== END ==
PROVIDERS: PCP Internal Medicine; Visit Provider Internal Medicine
DX: I25.10 Atherosclerotic heart disease of native coronary artery without angina pectoris (principal); I10 Essential (primary) hypertension; E78.5 Hyperlipidemia, unspecified
CPT/HCPCS: 80053; 80061; 82306

== ENCOUNTER → 2022-07-11 12:21 | Outpatient (CLI) | payer MEDICARE, OTHER, SELFPAY ==
[2022-07-11 14:14] LABS: Basophils # 0.1 K/mm3 (0-0.2); Eosinophils # 0.2 K/mm3 (0.0-0.4); Eosinophils % 2.6 % (0.1-12.0); Hematocrit 43.5 % (37.0-47.0); Hemoglobin 14.1 g/dL (12.2-16.2); Lymphocytes # 2.2 K/mm3 (0.7-4.5); Lymphocytes % 31.3 % (10-50); Mean Corpuscular HGB Conc 32.4 g/dL (31.8-35.4); Mean Corpuscular Hemoglobin 31.3 pg (27.0-31.2); Mean Corpuscular Volume 96.6 fl (81-99); Mean Platelet Volume 11.9 fl (7.4-10.4); Monocytes # 0.5 K/mm3 (0.1-1.0); Monocytes % 6.9 % (1.7-9.3); Neutrophils # 4.2 K/mm3 (1.8-7.8); Neutrophils % 58.2 % (37.0-80.0); Platelet Count 205 K/mm3 (142-424); Red Blood Count 4.51 M/mm3 (4.20-5.40); Red Cell Distribution Width 12.5 % (11.5-17.5); White Blood Count 7.1 K/mm3 (4.8-10.8)
[2022-07-11 14:54] LABS: Glucose,Fasting 77 mg/dl (74-100)
== END ==
PROVIDERS: PCP Internal Medicine; Visit Provider Internal Medicine
DX: I25.10 Atherosclerotic heart disease of native coronary artery without angina pectoris (principal); I10 Essential (primary) hypertension; E55.9 Vitamin D deficiency, unspecified
CPT/HCPCS: 82947; 85025

== ENCOUNTER 2022-10-03 03:28 | Emergency (ER) | payer MEDICARE, OTHER, SELFPAY ==
[2022-10-03 03:29] VITALS: BP 183/89; PULSE 70; RESP 19; TEMP 36.6; O2SAT 97; BMI 25.0
--- NOTE | 2022-10-03 03:38 | ECG_ITS ---
APPROVED REPORT Exam: Resting ECG HR:68 bpm ECG Measurements Heart Rate 68 AXES GA 145 P 75 QRSd 72 QRS 77 QT 405 T 82 QTc 422 Conclusion SINUS RHYTHM LEFT VENTRICULAR HYPERTROPHY AND ST-T CHANGE [VOLTAGE CRITERIA PLUS ST/T ABNORMALITY] ABNORMAL ECG UNCONFIRMED REPORT Electronically signed by : John Balderas MD 10/03/2022 21:01:58
[2022-10-03 03:44] VITALS: BMI 25.0
--- NOTE | 2022-10-03 03:45 | CT_ITS ---
PROCEDURE INFORMATION: Exam: CT Head Without Contrast Exam date and time: 10/03/2022 3:53 AM Age: 77 years old Clinical indication: Injury or trauma; Fall; Additional info: Fall, pain TECHNIQUE: Imaging protocol: Computed tomography of the head without contrast. Radiation optimization: All CT scans at this facility use at least one of these dose optimization techniques: automated exposure control; mA and/or kV adjustment per patient size (includes targeted exams where dose is matched to clinical indication); or iterative reconstruction. REPORTING DATA: Count of CT and Cardiac NM exams in prior 12 months: This patient has received 2 known CTs and 0 known cardiac nuclear medicine studies in the 12 months prior to the current study. COMPARISON: CR XR FACIAL BONES MIN 3V 06/15/2020 9:54 AM FINDINGS: Brain: No acute infarct, hemorrhage, or obvious mass lesion. Age appropriate diffuse cerebral volume loss. Mild chronic white matter changes, likely to be chronic small vessel ischemic changes. Cerebral ventricles: No ventriculomegaly. Paranasal sinuses: Visualized sinuses are unremarkable. No fluid levels. Mastoid air cells: Visualized mastoid air cells are well aerated. Bones/joints: Unremarkable. No acute fracture. Soft tissues: Unremarkable. IMPRESSION: No acute intracranial abnormality.
--- NOTE | 2022-10-03 03:45 | CT_ITS ---
PROCEDURE INFORMATION: Exam: CT Cervical Spine Without Contrast Exam date and time: 10/03/2022 3:55 AM Age: 77 years old Clinical indication: Injury or trauma; Fall; Additional info: Fall, pain TECHNIQUE: Imaging protocol: Computed tomography of the cervical spine without contrast. Radiation optimization: All CT scans at this facility use at least one of these dose optimization techniques: automated exposure control; mA and/or kV adjustment per patient size (includes targeted exams where dose is matched to clinical indication); or iterative reconstruction. REPORTING DATA: Count of CT and Cardiac NM exams in prior 12 months: This patient has received 2 known CTs and 0 known cardiac nuclear medicine studies in the 12 months prior to the current study. COMPARISON: CR [id number] XR cervical spine 5V 11/13/2018 10:40 AM FINDINGS: Bones/joints: No acute fracture or subluxation. Uffnwajj-zx-voutxj degenerative changes. No severe spinal stenosis. No abnormal widening to suggest a ligamentous injury. Lungs: Mild chronic emphysematous changes noted at the lung apices. Soft tissues: Unremarkable. IMPRESSION: No acute findings.
--- NOTE | 2022-10-03 03:45 | XR_ITS ---
PROCEDURE INFORMATION: Exam: XR Left Shoulder Exam date and time: 10/03/2022 4:15 AM Age: 77 years old Clinical indication: Injury or trauma; Fall; Additional info: Fall, pain TECHNIQUE: Imaging protocol: Radiologic exam of the left shoulder. Views: 2 or more views. COMPARISON: CR [id number] XR shoulder LT min 2V 11/13/2018 10:40 AM FINDINGS: Bones/joints: Normal. There is no fracture present. The shoulder joint appears well aligned. The acromioclavicular joint is unremarkable. The visualized ribs and lungs are unremarkable. Soft tissues: Normal. IMPRESSION: Unremarkable examination with no fracture or dislocation.
--- NOTE | 2022-10-03 03:45 | XR_ITS ---
PROCEDURE INFORMATION: Exam: XR Chest Exam date and time: 10/03/2022 4:15 AM Age: 77 years old Clinical indication: Injury or trauma; Fall TECHNIQUE: Imaging protocol: Radiologic exam of the chest. Views: 1 view. COMPARISON: CR XR CHEST 2V 10/31/2021 11:07 PM FINDINGS: Lungs: Unremarkable. No consolidation. There is no focal mass. Pleural spaces: There is no pneumothorax. There is no pleural effusion. Heart/Mediastinum: Unremarkable. No cardiomegaly. Bones/joints: There is no fracture present. IMPRESSION: 1. There is no significant traumatic injury to the chest. 2. No acute cardiac or pulmonary process.
--- NOTE | 2022-10-03 03:45 | XR_ITS ---
PROCEDURE INFORMATION: Exam: XR Pelvis Exam date and time: 10/03/2022 4:15 AM Age: 77 years old Clinical indication: Injury or trauma; Fall TECHNIQUE: Imaging protocol: Radiologic exam of the pelvis. Views: 1 or 2 view. COMPARISON: CT ABDOMEN PELVIS W CON 12/03/2020 9:09 PM FINDINGS: Bones/joints: Unremarkable. No acute fracture. The hips are well located. The symphysis pubis is unremarkable. The sacroiliac joints is unremarkable. Soft tissues: Unremarkable. IMPRESSION: No evidence for significant traumatic injury.
--- NOTE | 2022-10-03 03:50 | PC.NURSE ---
patient gone to RAD at this time.
--- NOTE | 2022-10-03 03:51 | PC.NURSE ---
pt to ct scan via stretcher
[2022-10-03 03:53] LABS: Basophils # 0.1 K/mm3 (0-0.2); Basophils % 1.4 % (0.1-2.0); Eosinophils # 0.3 K/mm3 (0.0-0.4); Eosinophils % 4.2 % (0.1-12.0); Hematocrit 42.8 % (37.0-47.0); Hemoglobin 14.2 g/dL (12.2-16.2); Lymphocytes % 33.4 % (10-50); Mean Corpuscular HGB Conc 33.2 g/dL (31.8-35.4); Mean Corpuscular Hemoglobin 31.7 pg (27.0-31.2); Mean Corpuscular Volume 95.5 fl (81-99); Mean Platelet Volume 9.8 fl (7.4-10.4); Monocytes # 0.5 K/mm3 (0.1-1.0); Monocytes % 7.6 % (1.7-9.3); Neutrophils # 3.3 K/mm3 (1.8-7.8); Neutrophils % 53.5 % (37.0-80.0); Platelet Count 219 K/mm3 (142-424); Red Blood Count 4.48 M/mm3 (4.20-5.40); Red Cell Distribution Width 12.6 % (11.5-17.5); White Blood Count 6.1 K/mm3 (4.8-10.8)
[2022-10-03 03:56] LABS: Chloride 99 mmol/L (98-107); Sodium 138 mmol/L (136-145)
[2022-10-03 03:57] LABS: Potassium 3.6 mmoL/L (3.5-5.1)
[2022-10-03 03:59] LABS: Alanine Aminotransferase 21 U/L (12-78); Albumin/Globulin Ratio 1.3 (1.1-1.8); Alkaline Phosphatase 66 U/L (38-126); Anion Gap 9.6 mEq/L (5-15); Aspartate Amino Transferase 27 U/L (14-36); Bilirubin,Total 0.4 mg/dl (0.2-1.3); Blood Urea Nitrogen 17 mg/dl (7-17); Calcium 8.5 mg/dl (8.4-10.2); Carbon Dioxide 33 mmol/L (22.0-30.0); Creatinine Clearance Estimated 52 mL/min (50-200); Estimated Glomerular Filt Rate 70 ml/min (>60); GFR (African American) 85 ML/MIN (>60); Glucose 107 mg/dl (74-100); Magnesium 1.9 mg/dl (1.6-2.3)
--- NOTE | 2022-10-03 04:07 | PC.NURSE ---
pt returned from CT
[2022-10-03 04:12] LABS: Troponin I < 0.01 ng/ml (0.00-0.034)
--- NOTE | 2022-10-03 04:36 | HMH.EDFALL ---
Discharge Plan Disposition Patient Disposition: Home, Self-Care Chief Complaint: Fall Prescriptions Prescriptions: No Action lisinopril 20 mg tablet 20 mg PO BID albuterol sulfate [ProAir HFA] 90 mcg/actuation HFA aerosol inhaler 2 puff INHALATION Q6H ipratropium-albuterol 0.5 mg-3 mg(2.5 mg base)/3 mL solution for nebulization 3 ml INHALATION Q8H alprazolam 0.5 mg tablet 0.5 mg PO BID aspirin [Adult Aspirin Regimen] 81 mg tablet,delayed release (DR/EC) 81 mg PO QDAY atorvastatin 20 MG tablet 10 mg PO QHS pantoprazole 40 MG tablet,delayed release (DR/EC) 40 mg PO DAILY ergocalciferol (vitamin D2) 50,000 UNIT capsule 50,000 unit PO QWEEK cyanocobalamin (vitamin B-12) 2,500 MCG tablet 2,500 mcg PO WEEKLY hydrochlorothiazide 12.5 mg tablet 12.5 mg PO DAILY Label Comments: TAKE 1 TABLET BY MOUTH EVERY MORNING FOR BLOOD PESSURE coenzyme P45-btlskmr E 1 EACH capsule 1 each PO DAILY Referrals Follow up/Referrals: Rell Arguelles MD [Primary Care Provider] - See instructions Clinical Impressions Clinical Impression: Fall, Concussion syndrome, Cervical strain, acute, Injury of shoulder, left Instructions Patient Instructions: DI for Shoulder Pain Discharge ED Provider: Saran DEL CID)Yasmany [facility] General Chief Complaint: Fall Stated Complaint: fell AO 0200 head and neck pain Time Seen by Provider: 10/03/22 03:30 Mode of Arrival: Family Vehicle Source of Information: Patient, Spouse and Medical Record Limitations: No Limitations Description of Symptoms (Recalled from ER Triage Doc. by RN): Pt presents to ER after a fall in the bathroom at approx 0230 this morning. States she was sitting on the commode when I must have fallen asleep because I woke up on the floor . Denies any dizziness, pain, or trouble ambulating when going to the bathroom. She c/o pain to the left side of her head, left side of neck, and left shoulder. She denies any dizziness, vision changes, or feeling faint. Denies any chest pain, SOA, or dyspnea. She does have a hx of CAD and had a heart cath in 2014 with [address] Negron @ [facility]. History of Present Illness HPI Narrative: fell off toilet and has head and neck and lt shoulder pain - pt at baseline at this time MD complaint: fall Onset (ago): hour(s) Fall from: other (off toilet ) Fall witnessed: no Place fall occurred: home Loss of consciousness: none Prolonged down time: no Symptoms prior to fall: none Location of injury: head and neck Location of injury - extremities: Left: shoulder Severity: moderate Associated symptoms (after fall): headache Related Data Home Medications Medication Instructions Recorded Confirmed albuterol sulfate 90 mcg/actuation 2 puff inhalation Q6H Asthma 08/03/17 10/03/22 aerosol inhaler (ProAir HFA) alprazolam 0.5 mg tablet 0.5 mg PO BID nerve 08/03/17 10/03/22 aspirin 81 mg tablet,delayed 81 mg PO QDAY prevent 08/03/17 10/03/22 release (Adult Aspirin Regimen) ipratropium 0.5 mg-albuterol 3 mg 3 ml inhalation Q8H Asthma 08/03/17 10/03/22 (2.5 mg base)/3 mL nebulization soln lisinopril 20 mg tablet 20 mg PO BID High blood pressure 11/09/18 10/03/22 atorvastatin 20 mg tablet 10 mg PO QHS Cholesterol 11/27/18 10/03/22 ergocalciferol (vitamin D2) 1,250 50,000 unit PO QWEEK Supplement 11/27/18 10/03/22 mcg (50,000 unit) capsule pantoprazole 40 mg tablet,delayed 40 mg PO DAILY stomach 11/27/18 10/03/22 release cyanocobalamin (vitamin B-12) 2,500 mcg PO WEEKLY SUPPLEMNT 06/02/20 10/03/22 2,500 mcg tablet coenzyme C09-obzdiru E 100 mg-5 1 each PO DAILY Cholesterol 08/05/20 10/03/22 unit capsule hydrochlorothiazide 12.5 mg tablet 12.5 mg PO DAILY High blood 10/03/22 10/03/22 pressure Allergies Allergy/AdvReac Type Severity Reaction Status Date / Time No Known Allergies Allergy Verified 08/05/20 08:22 [facility] Disclaimer: The informatio
[2022-10-03 04:41] LABS: NT Pro Brain Natriuretic Pep. 204 pg/mL (0-450)
[2022-10-03 04:52] VITALS: BP 167/85; PULSE 69; RESP 18; TEMP 36.7; O2SAT 97
== END 2022-10-03 05:07 | disposition home or self-care (01) ==
PROVIDERS: Emergency Provider Emergency Medicine; PCP Internal Medicine
DX: S16.1XXA Strain of muscle, fascia and tendon at neck level, initial encounter (principal); S49.92XA Unspecified injury of left shoulder and upper arm, initial encounter; F07.81 Postconcussional syndrome; W19.XXXA Unspecified fall, initial encounter; F41.9 Anxiety disorder, unspecified; I10 Essential (primary) hypertension; E78.5 Hyperlipidemia, unspecified; E55.9 Vitamin D deficiency, unspecified; Z87.891 Personal history of nicotine dependence
CPT/HCPCS: 70450; 71045; 72125; 72170; 73030; 80053; 83735; 83880; 84484; 85025; 93005; 96360; 99285

== ENCOUNTER 2022-12-01 09:50 | Outpatient (RCR) | payer MEDICARE, OTHER, SELFPAY | END 2023-02-22 11:00 | disposition home or self-care (01) | LOC: PT 09:50 | PROVIDERS: Visit Provider Internal Medicine Cardiovascular Disease | DX: I25.10 Atherosclerotic heart disease of native coronary artery without angina pectoris (principal) | CPT/HCPCS: 93798 ==

== ENCOUNTER → 2023-01-02 13:08 | Outpatient (CLI) | payer MEDICARE, OTHER, SELFPAY ==
[2023-01-02 14:39] LABS: Alanine Aminotransferase 35 U/L (12-78); Albumin Level 4.1 g/dl (3.5-5.0); Albumin/Globulin Ratio 1.6 (1.1-1.8); Alkaline Phosphatase 80 U/L (38-126); Anion Gap 14.1 mEq/L (5-15); Aspartate Amino Transferase 36 U/L (14-36); Bilirubin,Total 0.4 mg/dl (0.2-1.3); Blood Urea Nitrogen 16 mg/dl (7-17); Calcium 9.2 mg/dl (8.4-10.2); Carbon Dioxide 32 mmol/L (22.0-30.0); Chloride 98 mmol/L (98-107); Chol/HDL Ratio 2.6 (1-3.5); Cholesterol 193 mg/dl (140-200); Estimated Glomerular Filt Rate 70 ml/min (>60); GFR (African American) 85 ML/MIN (>60); Globulin 2.6 g/dL (1.3-3.2); Glucose 76 mg/dl (74-100); HDL Cholesterol 73 mg/dl (40-60); Potassium 5.1 mmoL/L (3.5-5.1); Sodium 139 mmol/L (136-145); Total Protein,Serum 6.7 g/dl (6.3-8.2); Triglycerides 218 mg/dl (30-150); VLDL Cholesterol 44 mg/dL (0-40)
[2023-01-02 14:50] LABS: Direct LDL Cholesterol 77.84 mg/dL (100-129)
[2023-01-02 14:57] LABS: 25-OH Vitamin D, Total 44.6 ng/mL (30-100)
[2023-01-02 15:04] LABS: Basophils % 0.6 % (0.1-2.0); Eosinophils # 0.2 K/mm3 (0.0-0.4); Eosinophils % 2.8 % (0.1-12.0); Hematocrit 42.6 % (37.0-47.0); Hemoglobin 13.7 g/dL (12.2-16.2); Lymphocytes # 1.4 K/mm3 (0.7-4.5); Lymphocytes % 22.4 % (10-50); Mean Corpuscular HGB Conc 32.1 g/dL (31.8-35.4); Mean Corpuscular Hemoglobin 31.4 pg (27.0-31.2); Mean Corpuscular Volume 97.7 fl (81-99); Mean Platelet Volume 10.5 fl (7.4-10.4); Monocytes # 0.4 K/mm3 (0.1-1.0); Monocytes % 5.9 % (1.7-9.3); Neutrophils # 4.2 K/mm3 (1.8-7.8); Neutrophils % 68.3 % (37.0-80.0); Platelet Count 220 K/mm3 (142-424); Red Blood Count 4.36 M/mm3 (4.20-5.40); Red Cell Distribution Width 12.3 % (11.5-17.5); White Blood Count 6.1 K/mm3 (4.8-10.8)
== END ==
PROVIDERS: PCP Internal Medicine; Visit Provider Internal Medicine
DX: I10 Essential (primary) hypertension (principal); E78.5 Hyperlipidemia, unspecified; E55.9 Vitamin D deficiency, unspecified; E53.8 Deficiency of other specified B group vitamins; J44.9 Chronic obstructive pulmonary disease, unspecified; Z85.118 Personal history of other malignant neoplasm of bronchus and lung
CPT/HCPCS: 80053; 80061; 82306; 85025

== ENCOUNTER → 2023-04-11 12:07 | Outpatient (CLI) | payer MEDICARE, OTHER, SELFPAY | PROVIDERS: PCP Internal Medicine; Visit Provider Internal Medicine | DX: N39.0 Urinary tract infection, site not specified (principal); B96.89 Other specified bacterial agents as the cause of diseases classified elsewhere; B95.2 Enterococcus as the cause of diseases classified elsewhere | CPT/HCPCS: 87086; 87088; 87186 ==

== ENCOUNTER → 2023-04-28 10:47 | Outpatient (CLI) | payer MEDICARE, OTHER, SELFPAY ==
[2023-04-28 11:16] LABS: Blood Urea Nitrogen 12 mg/dl (7-17); Estimated Glomerular Filt Rate 70 ml/min (>60); GFR (African American) 85 ML/MIN (>60)
--- NOTE | 2023-04-28 13:44 | CT_ITS ---
FINAL REPORT TECHNIQUE: Multiple axial CT sections were performed from the foramen magnum to the vertex. Coronal and sagittal reformatted images were also obtained. Precontrast and postcontrast injection images were obtained. This study was performed with technique to keep radiation doses as low as reasonably achievable, (ALARA). Individualized dose reduction techniques using automated exposure control or adjustment of mA and/or kV according to the patient size were employed. CLINICAL HISTORY: DIZZINESS COMPARISON: 10/03/2022 FINDINGS: The ventricles are normal in size. There is no evidence of hemorrhage. No masses are identified. There are mild periventricular hypodensities, likely chronic small vessel ischemic change. No extra-axial fluid collection is seen. The sinuses are normal. No osseous abnormality is seen on the bone window images. Postcontrast images demonstrate no abnormal enhancement. IMPRESSION: Mild periventricular hypodensities, likely chronic small vessel ischemic change. No acute intracranial abnormalities are identified. No focal enhancement is seen. Reviewed, Interpreted and Dictated by Susanne Coffman MD Transcribed by Charito King Authenticated and . [facility]
== END ==
PROVIDERS: PCP Internal Medicine; Visit Provider Internal Medicine
DX: R42 Dizziness and giddiness (principal); R51.9 Headache, unspecified; Z85.118 Personal history of other malignant neoplasm of bronchus and lung
CPT/HCPCS: 36415; 70470; 82565; 84520; Q9966

== ENCOUNTER → 2023-05-08 12:55 | Outpatient (CLI) | payer MEDICARE, OTHER, SELFPAY ==
--- NOTE | 2023-05-08 12:58 | MM_ITS ---
PROCEDURE INFORMATION: Exam: MG Bilateral Screening 3D Mammography Exam date and time: 05/08/2023 12:54 PM Age: 77 years old Clinical indication: Screening examination. Personal history of lung cancer. A maternal aunt had breast cancer. TECHNIQUE: Imaging protocol: Bilateral Screening tomosynthesis and 2D mammography including computer-aided detection (CAD) when performed. COMPARISON: 1. MG MM DIG SCREENING MAMM BI W/CAD 04/22/2022 9:46 AM 2. MG MM DIG SCREENING MAMM BI W/CAD 03/31/2021 9:48 AM 3. MG MM DIG SCREENING MAMM BI W/CAD 01/20/2020 10:15 AM 4. MG DIG MAMM-SCREEN [place] 01/11/2019 9:26 AM FINDINGS: MAMMOGRAPHY: Breast composition: The breasts are almost entirely fatty. Mass: None. Architectural distortion: None. Calcifications: No suspicious calcifications. Asymmetric density: None. Skin thickening: None. Axillary adenopathy: None. IMPRESSION: No mammographic evidence of malignancy. Annual screening is recommended unless otherwise clinically indicated. ASSESSMENT: BI-RADS Category 1: Negative
== END ==
PROVIDERS: PCP Internal Medicine; Visit Provider Internal Medicine
DX: Z12.31 Encounter for screening mammogram for malignant neoplasm of breast (principal)
CPT/HCPCS: 77063; 77067

== ENCOUNTER → 2023-07-03 12:22 | Outpatient (CLI) | payer MEDICARE, OTHER, SELFPAY ==
[2023-07-03 14:33] LABS: Alanine Aminotransferase 24 U/L (12-78); Albumin Level 4.1 g/dl (3.5-5.0); Albumin/Globulin Ratio 1.5 (1.1-1.8); Alkaline Phosphatase 68 U/L (38-126); Anion Gap 8.7 mEq/L (5-15); Aspartate Amino Transferase 32 U/L (14-36); Bilirubin,Total 0.4 mg/dl (0.2-1.3); Blood Urea Nitrogen 13 mg/dl (7-17); Calcium 9.2 mg/dl (8.4-10.2); Carbon Dioxide 33 mmol/L (22.0-30.0); Chloride 100 mmol/L (98-107); Chol/HDL Ratio 2.8 (1-3.5); Cholesterol 188 mg/dl (140-200); Estimated Glomerular Filt Rate 70 ml/min (>60); GFR (African American) 85 ML/MIN (>60); Globulin 2.8 g/dL (1.3-3.2); Glucose 76 mg/dl (74-100); HDL Cholesterol 67 mg/dl (40-60); Potassium 4.7 mmoL/L (3.5-5.1); Sodium 137 mmol/L (136-145); Total Protein,Serum 6.9 g/dl (6.3-8.2); Triglycerides 187 mg/dl (30-150); VLDL Cholesterol 37 mg/dL (0-40)
[2023-07-03 14:44] LABS: Direct LDL Cholesterol 83.01 mg/dL (100-129)
[2023-07-03 14:45] LABS: 25-OH Vitamin D, Total 54.7 ng/mL (30-100)
== END ==
PROVIDERS: PCP Internal Medicine; Visit Provider Internal Medicine
DX: I25.10 Atherosclerotic heart disease of native coronary artery without angina pectoris (principal); I10 Essential (primary) hypertension; E78.5 Hyperlipidemia, unspecified; J44.9 Chronic obstructive pulmonary disease, unspecified; Z86.39 Personal history of other endocrine, nutritional and metabolic disease
CPT/HCPCS: 80053; 80061; 82306

== ENCOUNTER 2023-08-08 08:54 | Day surgery (SDC) | payer MEDICARE, OTHER, SELFPAY ==
[2023-08-04 14:05] VITALS: BMI 24.2
[2023-08-08 09:44] VITALS: BP 135/68; PULSE 71; RESP 18; TEMP 36.3; O2SAT 99
[2023-08-08] MEDS: TROPICAMIDE 1% OPTH SOLN 2ML OP (09:51)
[2023-08-08] MEDS: TETRACAINE 0.5% OPTH SOL 15ML OP (09:51)
[2023-08-08] MEDS: APRACLONIDINE 0.5% OPHTH SOLN 5ML OP (09:51)
[2023-08-08] MEDS: PHENYLEPHRINE 2.5% OPHTH SOLN 2ML 0.0500000000000000028 ML OP (09:53)
[2023-08-08 10:17] VITALS: BP 135/68; PULSE 71; RESP 18; TEMP 37; O2SAT 99
== END 2023-08-08 10:17 | disposition home or self-care (01) ==
PROVIDERS: PCP Internal Medicine; Visit Provider Ophthalmology
PROC: (CPT 66821; principal; 2023-08-08 09:00)
DX: H26.40 Unspecified secondary cataract (principal)
CPT/HCPCS: 66821

== ENCOUNTER 2024-01-01 10:04 | Outpatient (CLI) | payer MEDICARE, OTHER, SELFPAY ==
[2024-01-01 16:52] LABS: Basophils # 0.1 K/mm3 (0-0.2); Basophils % 0.9 % (0.1-2.0); Eosinophils # 0.1 K/mm3 (0.0-0.4); Hematocrit 45.2 % (37.0-47.0); Hemoglobin 14.2 g/dL (12.2-16.2); Lymphocytes # 1.5 K/mm3 (0.7-4.5); Lymphocytes % 26.3 % (10-50); Mean Corpuscular HGB Conc 31.4 g/dL (31.8-35.4); Mean Corpuscular Hemoglobin 31.5 pg (27.0-31.2); Mean Corpuscular Volume 100.2 fl (81-99); Monocytes # 0.3 K/mm3 (0.1-1.0); Neutrophils # 3.7 K/mm3 (1.8-7.8); Neutrophils % 65.8 % (37.0-80.0); Platelet Count 216 K/mm3 (142-424); Red Blood Count 4.51 M/mm3 (4.20-5.40); Red Cell Distribution Width 12.9 % (11.5-17.5); White Blood Count 5.6 K/mm3 (4.8-10.8)
[2024-01-01 17:40] LABS: Alanine Aminotransferase 36 U/L (12-78); Albumin Level 4.4 g/dl (3.5-5.0); Albumin/Globulin Ratio 1.6 (1.1-1.8); Alkaline Phosphatase 69 U/L (38-126); Anion Gap 14.3 mEq/L (5-15); Aspartate Amino Transferase 43 U/L (14-36); Bilirubin,Total 0.6 mg/dl (0.2-1.3); Blood Urea Nitrogen 13 mg/dl (7-17); Calcium 9.6 mg/dl (8.4-10.2); Carbon Dioxide 32 mmol/L (22.0-30.0); Chloride 97 mmol/L (98-107); Chol/HDL Ratio 2.9 (1-3.5); Cholesterol 186 mg/dl (140-200); Estimated Glomerular Filt Rate 70 ml/min (>60); GFR (African American) 84 ML/MIN (>60); Globulin 2.8 g/dL (1.3-3.2); Glucose 65 mg/dl (74-100); HDL Cholesterol 65 mg/dl (40-60); Potassium 4.3 mmoL/L (3.5-5.1); Sodium 139 mmol/L (136-145); Total Protein,Serum 7.2 g/dl (6.3-8.2); Triglycerides 148 mg/dl (30-150); VLDL Cholesterol 30 mg/dL (0-40)
[2024-01-01 17:51] LABS: Direct LDL Cholesterol 79.59 mg/dL (100-129)
[2024-01-01 19:40] LABS: 25-OH Vitamin D, Total 56.6 ng/mL (30-100)
== END 2024-01-01 23:59 | disposition home or self-care (01) ==
LOC: LAB.DROPOF 01-03 10:05
PROVIDERS: PCP Internal Medicine; Visit Provider Internal Medicine
DX: I10 Essential (primary) hypertension (principal); E78.5 Hyperlipidemia, unspecified; E55.9 Vitamin D deficiency, unspecified; Z68.23 Body mass index [BMI] 23.0-23.9, adult; Z87.891 Personal history of nicotine dependence
CPT/HCPCS: 80053; 80061; 82306; 85025

== ENCOUNTER 2024-02-20 09:34 | Outpatient (CLI) | payer MEDICARE, OTHER, SELFPAY | END 2024-02-20 23:59 | disposition home or self-care (01) | LOC: LAB.DROPOF 02-21 09:35 | PROVIDERS: PCP Internal Medicine; Visit Provider Internal Medicine | DX: N39.0 Urinary tract infection, site not specified (principal) | CPT/HCPCS: 87086; 87088; 87186 ==

== ENCOUNTER 2024-04-20 19:56 | Emergency (ER) | payer MEDICARE, OTHER, SELFPAY ==
[2024-04-20 20:03] VITALS: BP 202/97; PULSE 84; RESP 19; TEMP 36.7; O2SAT 97; BMI 24.5
[2024-04-20 20:08] VITALS: BP 168/82; PULSE 85; O2SAT 98
--- NOTE | 2024-04-20 20:16 | HMH.EDGENADL ---
Discharge Plan Disposition Patient Disposition: Home, Self-Care Condition: Good Prescriptions Prescriptions: No Action cholecalciferol (vitamin D3) 50 mcg (2,000 unit) capsule 50 mcg PO DAILY albuterol sulfate [ProAir HFA] 90 mcg/actuation HFA aerosol inhaler 2 puff INHALATION Q6H ipratropium-albuterol 0.5 mg-3 mg(2.5 mg base)/3 mL solution for nebulization 3 ml INHALATION Q8H alprazolam 0.5 mg tablet 0.5 mg PO BID PRN (Reason: nerve) aspirin [Adult Aspirin Regimen] 81 mg tablet,delayed release (DR/EC) 81 mg PO QDAY ciprofloxacin HCl 250 mg tablet 250 mg PO BID Qty: 14 0RF prednisone 10 mg tablet 10 mg PO DIRECTED Qty: 32 0RF Rx Instructions: see taper instructions: 4 tabs po qam x 5 days; 3 tabs po qam x 2 days; 2 tabs po qam x 2 days; 1 tab po qam x 2 days; then stop lisinopril 20 mg tablet 20 mg PO BID Qty: 90 1RF atorvastatin 10 mg tablet See Rx Instructions .ROUTE .COMPLEX Qty: 90 1RF Dose Instruction: TAKE 1 TABLET BY MOUTH EVERY DAY Rx Instructions: TAKE 1 TABLET BY MOUTH EVERY DAY pantoprazole 40 MG tablet,delayed release (DR/EC) 40 mg PO DAILY cyanocobalamin (vitamin B-12) 2,500 MCG tablet 2,500 mcg PO WEEKLY hydrochlorothiazide 12.5 mg tablet 12.5 mg PO DAILY Patient Comments: TAKE 1 TABLET BY MOUTH EVERY MORNING FOR BLOOD PESSURE coenzyme [id number] E 1 EACH capsule 1 each PO DAILY Referrals Follow up/Referrals: Rell Arguelles MD [Primary Care Provider] - See instructions Activity Restrictions/Add. Instructions Additional Instructions/Restrictions: You were evaluated in the emergency department today. Please eat soft foods until the laceration is completely healed. Gently pat the sutures, as rubbing them can cause them to come loose early. Monitor for any signs of infection such as significant increase in pain or pus draining from the wound. Expect some swelling. Follow-up with your dentist for help with your dentures. Return to the emergency department for new or worsening symptoms. Clinical Impressions Clinical Impression: Laceration of lip Instructions Patient Instructions: DI for Laceration Repair Print Language Print Language: Swedish Discharge ED Provider: Lilia Xiao General Adult HPI General Chief complaint: Wound/Laceration Stated complaint: AO09/ lip lac Time Seen by Provider: 04/20/24 20:02 Mode of Arrival: Family Vehicle Source of Information: Patient Limitations: No Limitations Description of Symptoms (Recalled from ER Triage Doc. by RN): 78 yo female presents following altercation with a vaccuum hose. patient states she was attempting to vaccuum her vehicle and tugged on the hose and it came flying at her and hit her lip, causing an injury . laceration noted to right upper lip (through and through). mild bleeding. takes daily ASA. Hypertensive at baseline, but has taken her meds for day. PMH: also includes anxiety, takes xanax daily. A&O x4. GCS 15. History of Present Illness HPI narrative: This patient is a 78-year-old female with a history of CAD on aspirin, hypertension, and hyperlipidemia presenting to the emergency department for evaluation with concern for lip laceration. Patient reports that she was vacuuming out her car with a vacuum hose when she tugged on it, and it hit her in the lip. She states that it broke her dentures and lacerated her right upper lip. She had minimal bleeding but she was able to stop it with compression. She did not hit her head or lose consciousness. No other injuries noted. She is otherwise well. Related Data Home Medications ?Medication ?Instructions ?Recorded ?Confirmed albuterol sulfate 90 mcg/actuation 2 puff inhalation Q6H Asthma 08/03/17 02/20/24 aerosol inhaler (ProAir HFA) alprazolam 0.5 mg tablet 0.5 mg PO BID PRN nerve 08/03/17 02/20/24 aspirin 81 mg tablet,delayed 81 mg PO QDAY prevent 08/03/17 02/20/24 release (Adult Aspirin Regimen) ipratropium 0.5 mg-albuterol 3 mg 3 ml inhalation Q8H Asthma 08/03/17 02/20/24 (2.5 mg base)/3 mL nebulization soln pantoprazole 40 mg tablet,delayed 40 mg PO DAILY stomach 11/27/18 02/20/24 release cyanocobalamin (vitamin B-12) 2,500 mcg PO WEEKLY SUPPLEMNT 06/02/20 02/20/24 2,500 mcg tablet coenzyme [id number] E 100 mg-5 1 each PO DAILY Cholesterol 08/05/20 02/20/24 unit capsule hydrochlorothiazide 12.5 mg tablet 12.5 mg PO DAILY High blood 10/03/22 02/20/24 pressure cholecalciferol (vitamin D3) 50 50 mcg PO DAILY 01/01/24 02/20/24 mcg (2,000 unit) capsule Previous Rx's ?Medication ?Instructions ?Recorded lisinopril 20 mg tablet 20 mg PO BID High blood pressure 01/09/24 #90 tabs ciprofloxacin HCl 250 mg tablet 250 mg PO BID #14 tabs 02/20/24 prednisone 10 mg tablet 10 mg PO DIRECTED #32 tabs 02/20/24 atorvastatin 10 mg tablet See Rx Instructions .Route 04/08/24 .COMPLEX #90 tabs Allergies Allergy/AdvReac Type Severity Reaction Status Date / Time No Known Allergies Allergy Verified 02/20/24 12:09 [facility] Disclaimer: The information contained in this section may have been updated after the patient was seen, as this information can be updated by other users. Medical History Complicated grief Lumbago with sciatica, left side Chronic obstructive pulmonary disease, unspecified Allergic rhinitis, unspecified Atherosclerotic heart disease of [place] coronary artery without angina pectoris Hypoglycemia, unspecified History of left heart catheterization (LHC) Anxiety Vitamin D deficiency Hyperlipemia Essential hypertension Surgical History History of lobectomy of lung Family History Other Family history of cancer Family history of hyperlipidemia Family history of hypertension Family history of myocardial infarction No significant family history Social History Smoking Status: Unknown if ever smoked second hand exposure: No alcohol intake: current alcohol intake frequency: holidays/special occasions only substance use type: denies use current occupational status: retired Travel in the last 8 weeks: None household members: spouse housing: house current occupational exposures/hazards: No caffeine: Yes ROS Obtained: Yes All systems reviewed & no additional complaints except as documented Physical Exam General General appearance: alert and in no apparent distress Head Head exam: atraumatic and normocephalic Eye Eye exam: Present normal appearance, PERRL and EOMI ENT ENT exam: Present normal oropharynx, mucous membranes moist and normal external ear exam Expanded ENT Exam Nose/Mouth Image: 1. 1 cm irregular full thickness laceration Neck Neck exam: Present normal inspection, full ROM and trachea midline; Absent tenderness Chest Chest inspection: Present normal inspection and symmetric chest wall rise; Absent tenderness Respiratory Respiratory exam: Present normal lung sounds bilaterally; Absent respiratory distress, wheezes, stridor or accessory muscle use Cardiovascular Cardiovascular exam: Present regular rate and normal rhythm Abdominal Exam Abdominal exam: Present soft; Absent distention, tenderness or guarding Extremities Exam Extremities exam: Present normal inspection, full ROM and normal capillary refill; Absent tenderness or edema Back Exam Back exam: Present normal inspection and full ROM; Absent tenderness Neurological Exam Neurological exam: Present alert, oriented X3, CN II-XII intact and normal gait; Absent motor sensory deficit Psychiatric Psychiatric exam: Present normal affect and normal mood Skin Skin exam: Present warm and dry Medical Decision Making Medical Records Medical records reviewed: Yes I reviewed the patient's medical records. Screening: Per USPSTF and CDC recommendations, given the prevalence of disease in our region, it is our hospital?s policy to screen for HIV and viral Hepatitis for all patients aged 18 and over and those with ongoing risk factors. Chau Inquiry Pt receiving controlled substance: No Vital Signs: 04/20/24 20:03 04/20/24 20:08 04/20/24 20:30 Temperature 98.0 F Temperature Source Oral Pulse Rate 85 75 Pulse Rate [Right Brachial] 84 Respiratory Rate 19 Blood Pressure 168/82 H 173/88 H Blood Pressure [Right Arm] 202/97 H Blood Pressure Mean 138 Blood Pressure Mean [Right Arm] 132 Blood Pressure Source [Right Arm] Automatic Cuff Blood Pressure Position [Right Arm] Sitting 02 Sat by Pulse Oximetry 97 98 97 Oxygen Delivery Method Room Air Room Air 04/20/24 21:00 04/20/24 21:45 Temperature 98 F Temperature Source Pulse Rate 74 66 Pulse Rate [Right Brachial] Respiratory Rate 19 Blood Pressure 172/75 H 181/93 H Blood Pressure [Right Arm] Blood Pressure Mean Blood Pressure Mean [Right Arm] Blood Pressure Source [Right Arm] Blood Pressure Position [Right Arm] 02 Sat by Pulse Oximetry 96 Oxygen Delivery Method Lab Data Lab results reviewed: Yes I reviewed the patient's lab results. Orders (Tests/Meds): ED MEDICATIONS Discontinued Medications Generic Name Dose Route Start Last Admin Trade Name Cipriano PRN Reason Stop Dose Admin Lidocaine HCl 20 ml 04/20/24 20:02 Lidocaine 1% 20ml Mdv IJ 04/20/24 20:03 ONCE ONE Medical Decision Narrative: In summary, this patient is a 78-year-old female presenting to the Emergency Department for evaluation of lip laceration. Differential diagnoses considered include but are not limited to laceration, abrasion, foreign body, gum injury, dental injury, head injury. Ruling out the most morbid conditions drove assessment. It should be noted patient's history includes CAD on aspirin which may or may not be at goal therapy. This complicates all aspects of care by increasing patient's risk for morbidity. On exam, the patient is very well-appearing. She had no head injury or loss of consciousness. She has a lip laceration where she was struck directly in the lip, which I feel would benefit from suture repair. She is agreeable to this. Patient's lacerations appear that difficulty. Please procedure note for further documentation. She tolerated this well with no complication. At this time, feel that she is appropriate for discharge home with instructions for wound care and strict return precautions. She was discharged after all questions were answered Procedures Risk/Benefits of Procedure(s) Were Explained: Yes Laceration Laceration 1: Site: lip Side (If applicable): right Size (cm): 1 Description: irregular Depth: simple, single layer Local Anesthetic: lidocaine 1% Amount of anesthesia used (mL): 1 Pre-repair: wound explored, irrigated extensively, deep structures intact and wound margins revised Skin layer closed with: other (Fast-absorbing gut) Size (cm): 5-0 Number of sutures: 3 Critical Care Critical Care Time Critical Care Time: No
[2024-04-20 20:30] VITALS: BP 173/88; PULSE 75; O2SAT 97
[2024-04-20 21:00] VITALS: BP 172/75; PULSE 74; O2SAT 96
[2024-04-20 21:45] VITALS: BP 181/93; PULSE 66; RESP 19; TEMP 36.6; O2SAT 97
== END 2024-04-20 21:52 | disposition home or self-care (01) ==
PROVIDERS: Emergency Provider Emergency Medicine; PCP Internal Medicine
DX: S01.511A Laceration without foreign body of lip, initial encounter (principal); I25.10 Atherosclerotic heart disease of native coronary artery without angina pectoris; I10 Essential (primary) hypertension; E78.5 Hyperlipidemia, unspecified; J44.9 Chronic obstructive pulmonary disease, unspecified; Z79.82 Long term (current) use of aspirin; W22.8XXA Striking against or struck by other objects, initial encounter; Y92.9 Unspecified place or not applicable
CPT/HCPCS: 12011; 99283

== ENCOUNTER 2024-05-20 10:37 | Outpatient (CLI) | payer MEDICARE, OTHER, SELFPAY ==
--- NOTE | 2024-05-20 10:37 | MM_ITS ---
PROCEDURE INFORMATION: Exam: MG Bilateral Screening 3D Mammography Exam date and time: 05/20/2024 10:29 AM Age: 78 years old Clinical indication: Screening examination TECHNIQUE: Imaging protocol: Bilateral Screening tomosynthesis and 2D mammography including computer-aided detection (CAD) when performed. COMPARISON: 1. MG MM DIG SCREENING MAMM BI W/CAD 05/08/2023 12:54 PM 2. MG MM DIG SCREENING MAMM BI W/CAD 04/22/2022 9:46 AM FINDINGS: MAMMOGRAPHY: Breast composition: There are scattered areas of fibroglandular density. Mass: No suspicious masses. Architectural distortion: None. Calcifications: No suspicious calcifications. Asymmetric density: None. Skin thickening: None. Axillary adenopathy: None. IMPRESSION: No mammographic evidence of malignancy. Annual screening is recommended unless otherwise clinically indicated. ASSESSMENT: BI-RADS Category 1: Negative.
== END 2024-05-20 23:59 | disposition home or self-care (01) ==
LOC: RAD 10:37
PROVIDERS: PCP Internal Medicine; Visit Provider Internal Medicine
DX: Z12.31 Encounter for screening mammogram for malignant neoplasm of breast (principal)
CPT/HCPCS: 77063; 77067

== ENCOUNTER 2024-07-02 16:33 | Outpatient (CLI) | payer MEDICARE, OTHER, SELFPAY ==
[2024-07-02 14:07] LABS: Alanine Aminotransferase 19 U/L (12-78); Albumin/Globulin Ratio 1.7 (1.1-1.8); Alkaline Phosphatase 67 U/L (38-126); Anion Gap 9.7 mEq/L (5-15); Aspartate Amino Transferase 26 U/L (14-36); Bilirubin,Total 0.5 mg/dl (0.2-1.3); Blood Urea Nitrogen 13 mg/dl (7-17); Calcium 9.4 mg/dl (8.4-10.2); Carbon Dioxide 34 mmol/L (22.0-30.0); Chloride 101 mmol/L (98-107); Chol/HDL Ratio 2.7 (1-3.5); Cholesterol 167 mg/dl (140-200); Estimated Glomerular Filt Rate 61 ml/min (>60); GFR (African American) 74 ML/MIN (>60); Globulin 2.3 g/dL (1.3-3.2); Glucose 73 mg/dl (74-100); HDL Cholesterol 62 mg/dl (40-60); Potassium 4.7 mmoL/L (3.5-5.1); Sodium 140 mmol/L (136-145); Total Protein,Serum 6.3 g/dl (6.3-8.2); Triglycerides 138 mg/dl (30-150); VLDL Cholesterol 28 mg/dL (0-40)
[2024-07-02 14:18] LABS: Direct LDL Cholesterol 73.56 mg/dL (100-129)
== END 2024-07-02 23:59 | disposition home or self-care (01) ==
LOC: LAB.DROPOF 16:34
PROVIDERS: PCP Internal Medicine; Visit Provider Internal Medicine
DX: E78.5 Hyperlipidemia, unspecified (principal); I10 Essential (primary) hypertension
CPT/HCPCS: 80053; 80061

== ENCOUNTER 2024-09-25 15:42 | Outpatient (CLI) | payer MEDICARE, OTHER, SELFPAY ==
--- NOTE | 2024-09-25 15:47 | XR_ITS ---
FINAL REPORT TECHNIQUE: 6 views CLINICAL HISTORY: Neck pain and stiffness COMPARISON: None FINDINGS: CERVICAL SPINE: 6 views of the cervical spine were obtained. There is severe degenerative disc disease and spondylosis present. There is minimal anterolisthesis of C4 on C5. Osteopenia is present. There is bony neural foraminal narrowing in the mid and lower cervical spine diffusely, as well as facet arthropathy. IMPRESSION: Advanced degenerative changes without fracture. Reviewed, Interpreted and Dictated by Jamison Khan MD Transcribed by Charito King Authenticated and [facility]
== END 2024-09-25 23:59 | disposition home or self-care (01) ==
LOC: RAD 15:45
PROVIDERS: PCP Internal Medicine; Visit Provider Internal Medicine
DX: M54.2 Cervicalgia (principal); M47.812 Spondylosis without myelopathy or radiculopathy, cervical region
CPT/HCPCS: 72050

== ENCOUNTER 2024-12-30 09:45 | Outpatient (CLI) | payer MEDICARE, OTHER, SELFPAY ==
[2024-12-30 14:46] LABS: Basophils # 0.1 K/mm3 (0-0.2); Eosinophils # 0.2 Kmm3 (0.0-0.4); Eosinophils % 3.5 % (0.1-12.0); Hematocrit 43.6 % (37.0-47.0); Hemoglobin 13.6 g/dL (12.2-16.2); Immature Granulocytes # 0.01 10^3uL; Immature Granulocytes % 0.2 %; Lymphocytes # 1.3 K/mm3 (0.7-4.5); Lymphocytes % 22.3 % (10-50); Mean Corpuscular HGB Conc 31.2 g/dL (31.8-35.4); Mean Corpuscular Hemoglobin 30.2 pg (27.0-31.2); Mean Corpuscular Volume 96.9 fl (81-99); Mean Platelet Volume 12.9 fl (7.4-10.4); Monocytes # 0.5 K/mm3 (0.1-1.0); Monocytes % 8.7 % (1.7-9.3); Neutrophils # 3.8 K/mm3 (1.8-7.8); Neutrophils % 64.3 % (37.0-80.0); Nucleated Red Blood Cells # 0 10^3/uL; Nucleated Red Blood Cells % 0 %; Platelet Count 224 K/mm3 (142-424); Red Cell Distribution Width 12.2 % (11.5-17.5); Red Cell Distribution Width-SD 43.8 fL
[2024-12-30 15:18] LABS: Alanine Aminotransferase 20 U/L (12-78); Albumin Level 4.2 g/dl (3.5-5.0); Albumin/Globulin Ratio 1.6 (1.1-1.8); Alkaline Phosphatase 71 U/L (38-126); Anion Gap 9.5 mEq/L (5-15); Aspartate Amino Transferase 26 U/L (14-36); Bilirubin,Total 0.5 mg/dl (0.2-1.3); Blood Urea Nitrogen 14 mg/dl (7-17); Calcium 9.2 mg/dl (8.4-10.2); Carbon Dioxide 34 mmol/L (22.0-30.0); Chloride 101 mmol/L (98-107); Chol/HDL Ratio 2.9 (1-3.5); Cholesterol 197 mg/dl (140-200); Estimated Glomerular Filt Rate 61 ml/min (>60); GFR (African American) 73 ML/MIN (>60); Globulin 2.6 g/dL (1.3-3.2); Glucose 73 mg/dl (74-100); HDL Cholesterol 67 mg/dl (40-60); Potassium 4.5 mmoL/L (3.5-5.1); Sodium 140 mmol/L (136-145); Total Protein,Serum 6.8 g/dl (6.3-8.2); Triglycerides 135 mg/dl (30-150); VLDL Cholesterol 27 mg/dL (0-40)
[2024-12-30 15:29] LABS: Direct LDL Cholesterol 88.48 mg/dL (100-129)
== END 2024-12-30 23:59 | disposition home or self-care (01) ==
LOC: LAB.DROPOF 12-31 11:33
PROVIDERS: PCP Internal Medicine; Visit Provider Internal Medicine
DX: E78.5 Hyperlipidemia, unspecified (principal); I10 Essential (primary) hypertension; E55.9 Vitamin D deficiency, unspecified; I25.10 Atherosclerotic heart disease of native coronary artery without angina pectoris
CPT/HCPCS: 80053; 80061; 82652; 85025

== ENCOUNTER 2025-02-07 07:01 | Day surgery (SDC) | payer MEDICARE, OTHER, SELFPAY ==
[2025-02-06 11:24] VITALS: BMI 25.6
--- NOTE | 2025-02-07 05:57 | EXP.GEN.HP ---
HPI HPI HPI: Patient is a 79-year-old female whom I had performed EGD and colonoscopy in 2013. In 2013 there were no polyps. Prior to that gastroenterology had performed colonoscopy and she had a tubular adenoma. She does have a history of lung cancer and underwent thoracoscopic surgery. I had performed EGD and colonoscopy October 2018 at which time there were no obvious polyps but she had somewhat of a suboptimal preparation and repeat colonoscopy was recommended for 5 years. [facility] Disclaimer: The information contained in this section may have been updated after the patient was seen, as this information can be updated by other users. Medical History (Updated 02/07/25 @ 06:00 by Lemuel Krause MD) Cataract Complicated grief Lumbago with sciatica, left side Chronic obstructive pulmonary disease, unspecified Allergic rhinitis, unspecified Atherosclerotic heart disease of [place] coronary artery without angina pectoris Hypoglycemia, unspecified History of left heart catheterization (LHC) Anxiety Vitamin D deficiency Hyperlipemia Essential hypertension Surgical History (Updated 02/06/25 @ 11:19 by Yodit Larsen RN) History of right heart catheterization (RHC) History of colonoscopy History of lobectomy of lung Family History (Updated 02/06/25 @ 11:19 by Yodit Larsen RN) Family history of cancer Family history of hypertension Family history of myocardial infarction Family history of hyperlipidemia Social History (Updated 02/06/25 @ 11:20 by Yodit Larsen RN) Smoking Status: Former smoker second hand exposure: No alcohol intake: never substance use type: denies use current occupational status: retired Travel in the last 8 weeks?: None household members: spouse housing: house current occupational exposures/hazards: No caffeine: Yes Contact w/someone who lives/traveled outside [place] past 30 days?: No Exposure to someone with infectious disease in past 14 days?: No Do you have a fever (greater than 100.4 F or 38 C)?: No Have you tested positive for COVID-19?: No Exposed to someone with COVID-19 in past 14 days?: No Do you have a sore throat?: No Do you have a cough?: No Do you have any weakness?: No Are you experiencing any nausea/vomitting?: No Do you have any diarrhea?: No Are you experiencing any unusual bleeding?: No Do you have any muscle aches/pain?: No Do you have any abdominal pain?: No Are you experiencing loss of taste or smell?: No Other Medical History Have you received the Flu Vaccine for this season: Yes Have you received the Pneumonia Vaccine: Yes Meds Home Medications and Allergies Home Medications ?Medication ?Instructions ?Recorded ?Confirmed ?Type aspirin 81 mg tablet,delayed 81 mg PO QDAY prevent 08/03/17 02/06/25 History release (Adult Aspirin Regimen) coenzyme [id number] E 100 mg-5 1 each PO DAILY Cholesterol 08/05/20 02/06/25 History unit capsule cholecalciferol (vitamin D3) 50 50 mcg PO DAILY 01/01/24 02/06/25 History mcg (2,000 unit) capsule atorvastatin 10 mg tablet See Rx Instructions .Route 10/01/24 02/06/25 Rx .COMPLEX #90 tabs lisinopril 20 mg tablet 20 mg PO BID High blood pressure 10/01/24 02/06/25 Rx #180 tabs albuterol sulfate 90 mcg/actuation See Rx Instructions .Route 10/03/24 02/06/25 Rx aerosol inhaler .COMPLEX #8.5 grams hydrochlorothiazide 12.5 mg tablet See Rx Instructions .Route 11/19/24 02/06/25 Rx .COMPLEX #90 tabs pantoprazole 40 mg tablet,delayed 40 mg PO DAILY stomach #90 tabs 11/19/24 02/06/25 Rx release sod picosulf 10 mg-magnes 3.5 175 ml PO DAILY 2 doses #350 mL 01/28/25 02/06/25 Rx gram-citric 12 gram/175 mL oral solution (Clenpiq) alprazolam 0.5 mg tablet 0.5 mg PO BID PRN nerve #60 tabs 02/04/25 02/06/25 Rx ipratropium 0.5 mg-albuterol 3 mg See Rx Instructions .Route 02/04/25 02/06/25 Rx (2.5 mg base)/3 mL nebulization .COMPLEX #1,080 mL soln New Prescriptions to Start Prescriptions: Allergies Allergy/AdvReac Type Severity Reaction Status Date / Time No Known Allergies Allergy Verified 02/06/25 11:20 Exam Data for Last 24 hours I & O for Last 24 hours: Intake & Output 02/04/25 02/05/25 02/06/25 02/07/25 11:59 11:59 11:59 11:59 Weight 154 lb Constitutional Constitutional: no acute distress *Routine HEENT Exam Head: Present normocephalic Eye: Present EOMI and PERRL ENT: Present mucous membranes moist *Routine Neck Exam Neck: Present supple; Absent lymphadenopathy *Routine Respiratory Exam Respiratory: Present decreased breath sounds *Routine Cardiovascular Exam Cardiovascular: Present RRR *Routine Abdominal Exam Abdominal: Present soft and normoactive bowel sounds; Absent tenderness *Routine Rectal Exam Rectal:: deferred *Routine Genitalia Exam Genitalia:: deferred *Routine Extremities Exam Extremities: Absent cyanosis, clubbing or edema *Routine Skin Exam Skin: Present warm; Absent rash *Routine Neurological Exam Neurological: Present alert and oriented X3 Assessment and Plan *Assessment and plan (1) Encounter for screening colonoscopy: Status: Acute Category: Medical Code(s): Z12.11 - Encounter for screening for malignant neoplasm of colon
[2025-02-07 07:20] VITALS: BP 151/68; PULSE 70; RESP 18; TEMP 36.4; O2SAT 96
[2025-02-07] MEDS: LACTATED RINGERS 1000ML 1,000 ML 50 ML IV (07:20)
--- NOTE | 2025-02-07 07:36 | P.PNANES_ITS ---
[facility] Disclaimer: The information contained in this section may have been updated after the patient was seen, as this information can be updated by other users. Medical History Cataract Complicated grief Lumbago with sciatica, left side Chronic obstructive pulmonary disease, unspecified Allergic rhinitis, unspecified Atherosclerotic heart disease of [place] coronary artery without angina pectoris Hypoglycemia, unspecified History of left heart catheterization (LHC) Anxiety Vitamin D deficiency Hyperlipemia Essential hypertension Surgical History History of right heart catheterization (RHC) History of colonoscopy History of lobectomy of lung Family History Other Family history of cancer Family history of hyperlipidemia Family history of hypertension Family history of myocardial infarction Social History Smoking Status: Former smoker second hand exposure: No alcohol intake: never substance use type: denies use current occupational status: retired Travel in the last 8 weeks?: None household members: spouse housing: house current occupational exposures/hazards: No caffeine: Yes Have you lived/traveled outside [place] in past 30 days?: No Contact w/someone who lives/traveled outside [place] past 30 days?: No Exposure to someone with infectious disease in past 14 days?: No Do you have a fever (greater than 100.4 F or 38 C)?: No Have you tested positive for COVID-19?: No Exposed to someone with COVID-19 in past 14 days?: No Do you have a sore throat?: No Do you have a cough?: No Do you have any weakness?: No Are you experiencing any nausea/vomitting?: No Do you have any diarrhea?: No Are you experiencing any unusual bleeding?: No Do you have any muscle aches/pain?: No Do you have any abdominal pain?: No Are you experiencing loss of taste or smell?: No [facility] Anesthesia Checklist Patient Identification Patient Identification: Arm Band Structural Data Admitted From: Home Planned Operative Procedure/s: Colonoscopy Consent for Planned Operative Procedure(s) Verified: Yes Verified Documents: Surgical Consent and History and Physical NPO Status Verified Time NPO: 00:00 Additional verifications Anesthesia Reactions: No Hx Blood Transfusions: No Blood Transfusion Reaction: No Airway Assessment Mallampati Score:: Class II C-Spine Mobility Assessed: Yes TMJ Mobility Assessed: Yes Dentition: Good Dentition Neurological Assessment Level of Consciousness: Awake, Alert and Appropriate Anesthesia Plan Anesthesia Risk discussed: Yes Anesthesia Plan: Verified ASA Class: III Anesthesia Type: MAC
--- NOTE | 2025-02-07 08:20 | P.PCN_ITS ---
Procedure: Date: 02/07/25 Patient Date of :: 1945 Procedure Performed:: Total colonoscopy to terminal ileum Indications:: Patient is a 79-year-old female whom I had performed EGD and colonoscopy in 2013. In 2013 there were no polyps. Prior to that gastroenterology had performed colonoscopy and she had a tubular adenoma. She does have a history of lung cancer and underwent thoracoscopic surgery. I had performed EGD and colonoscopy October 2018 at which time there were no obvious polyps but she had somewhat of a suboptimal preparation and repeat colonoscopy was recommended for 5 years. Performing Provider:: Lemuel Krause MD Referring Provider:: Rell Arguelles MD Sedation:: MAC sedation Procedure:: Patient history was obtained and appropriate physical examination was performed. Patient's medications and allergies were reviewed. Informed consent was obtained after explaining the benefits, alternatives, and risks of the procedure including, but not limited to, bleeding, perforation, missed lesions, and adverse reaction to anesthesia medications. Patient was transported to endoscopy procedure room. Patient was connected to monitoring devices. Throughout the procedure the patient's blood pressure, pulse, and oxygen saturations were monitored continuously. Patient identification and planned procedure were verified by the staff. Patient was positioned in lateral decubitus position. Digital anorectal exam was performed. Variable stiffness Olympus colonoscope was inserted and advanced under direct visualization to the cecum. Adequacy of the colonic preparation was noted. The colonoscope was advanced a short distance into the terminal ileum. The colonoscope was then slowly withdrawn while carefully examining the color, texture, anatomy, and integrity of the mucosoa circum ferentially. Colonoscope was then withdrawn. Impression: Colonic preparation was good. There were no notable polyps. 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 She had moderate sigmoid diverticulosis. She had evidence of some hemorrhoidal prolapse. Findings:: Diverticulosis Hemorrhoid prolapse Recommendations:: Would not pursue repeat colonoscopy for 10 years unless indicated Complications:: None immediately apparent Estimated blood obtained (mL): 0 Colonoscopy Component Colonoscopy Component Was a colonoscopy performed during today's procedure?: Yes Recommended follow up colonoscopy of at least 10 years?: Yes
[2025-02-07 08:21] VITALS: BP 86/46; PULSE 63; RESP 16; TEMP 36.3; O2SAT 95
[2025-02-07 08:31] VITALS: BP 103/62; PULSE 69; RESP 16; TEMP 36.3; O2SAT 97
[2025-02-07 08:41] VITALS: BP 115/73; PULSE 73; RESP 18; TEMP 36.3; O2SAT 99
[2025-02-07 08:51] VITALS: BP 140/84; PULSE 70; RESP 18; TEMP 36.3; O2SAT 100
== END 2025-02-07 08:31 | disposition home or self-care (01) ==
PROVIDERS: PCP Internal Medicine; Visit Provider Surgery
PROC: 0DJD8ZZ Inspection of Lower Intestinal Tract, Via Natural or Artificial Opening Endoscopic (ICD-10-PCS; CPT G0121; principal; 2025-02-07 08:15)
DX: Z12.11 Encounter for screening for malignant neoplasm of colon (principal); Z86.0101 Personal history of adenomatous and serrated colon polyps; K55.20 Angiodysplasia of colon without hemorrhage; K57.30 Diverticulosis of large intestine without perforation or abscess without bleeding; K64.8 Other hemorrhoids; J44.9 Chronic obstructive pulmonary disease, unspecified; I25.10 Atherosclerotic heart disease of native coronary artery without angina pectoris; E55.9 Vitamin D deficiency, unspecified; F41.9 Anxiety disorder, unspecified; E78.5 Hyperlipidemia, unspecified; I10 Essential (primary) hypertension; Z87.891 Personal history of nicotine dependence; Z79.82 Long term (current) use of aspirin; Z79.899 Other long term (current) drug therapy
CPT/HCPCS: G0121; J2003; J2704; J7120

== ENCOUNTER 2025-04-30 14:24 | Outpatient (CLI) | payer MEDICARE, OTHER, SELFPAY ==
--- OUTSIDE RECORDS SUMMARY | 2023-10-23 09:29 | XMS_ITS | Encounter Summary ---
[facility] Address [address] [place] [address] Care Team Providers Care Disability Coordinator Name Role Phone Rell Arguelles MD Primary Care Provider [phone] Encounter Details Date Type Department Care Team (Late st Contact Info) Description 10/23/2023 9:29 AM EDT Hospital Encounter [facility] PULMONARY & CRITICAL CARE MEDICINE [address] [place] [phone] Social History Tobacco Use Types Packs/Day Years [...] Info) Description 10/23/2025 10:45 AM EDT Registration [facility] PULMONARY & CRITICAL CARE MEDICINE [address] [place] [address] 10/23/2025 11:00 AM EDT Office Visit [facility] PULMONARY & CRITICAL CARE MEDICINE [address] [place] [address] 10/23/2025 11:30 AM EDT Office Visit [facility] PULMONARY & CRITICAL CARE MEDICINE [address] [place] [address] Chiquis Mcqueen, ELECTRONIC TECH [address] [place] [address] 04/27/2026 1:45 PM EDT Office Visit [facility] CARDIOLOGY [address] [facility] [address] [place] [address] Debbie Al, ELECTRONIC TECH [address] [facility] [address] [place] [address] documented as of this encounter Procedures Procedure [...] MD 10/23/2023 3:39 PM EDT Workstation ID: [id number] Narrative 10/23/2023 3:39 PM EDT XR CHEST [...] MD 10/23/2023 3:39 PM EDT Workstation ID: [id number] Chiquis Mcqueen APRN IMG DIAGNOSTIC IMAGING ORDER MAIN Final Result documented in this encounter Visit Diagnoses Not on filedocumented in this encounter Care Teams Disability Coordinator Relationship Specialty Start Date End Date Rell Arguelles MD [address] [place] [facility] [address] [place] [address] PCP - General Internal Medicine 10/16/18 documented as of this encounter
--- OUTSIDE RECORDS SUMMARY | 2024-10-22 10:10 | XMS_ITS | Encounter Summary ---
[facility] [address] [place] [address] Care Team Providers Care Ultrasound Manager Name Role Phone Rell Arguelles MD Primary Care Provider [phone] Encounter Details Date Type Department Care Team (Late st Contact Info) Description 10/22/2024 10:10 AM EDT Hospital Encounter [facility] PULMONARY & CRITICAL CARE MEDICINE [address] [place] [id number] Social History Tobacco Use Types Packs/Day Years [...] Info) Description 10/23/2025 10:45 AM EDT Registration [facility] PULMONARY & CRITICAL CARE MEDICINE [address] [place] [address] 10/23/2025 11:00 AM EDT Office Visit [facility] PULMONARY & CRITICAL CARE MEDICINE [address] [place] [address] 10/23/2025 11:30 AM EDT Office Visit [facility] PULMONARY & CRITICAL CARE MEDICINE [address] [place] [address] Chiquis Mcqueen, [employer]NEY[employer] [address] [place] [address] 04/27/2026 1:45 PM EDT Office Visit [facility] CARDIOLOGY [address] [facility] [address] [place] [address] Debbie Al, [employer] [address] [facility] [address] [place] [address] documented as of this encounter Procedures Procedure [...] MD 10/25/2024 2:01 PM EDT Workstation ID: [id number] Narrative 10/25/2024 2:01 PM EDT XR CHEST [...] MD 10/25/2024 2:01 PM EDT Workstation ID: [id number] Chiquis Mcqueen APRN IMG DIAGNOSTIC IMAGING ORDER MAIN Final Result documented in this encounter Visit Diagnoses Not on filedocumented in this encounter Care Teams Ultrasound Manager Relationship Specialty Start Date End Date Rell Arguelles MD [address] [facility] [address] [place] [id number] PCP - General Internal Medicine 10/16/18 documented as of this encounter
--- OUTSIDE RECORDS SUMMARY | 2025-04-21 13:30 | XMS_ITS | Encounter Summary ---
[facility] Organization [facility] Address [address] [place] [id number] Care Team Providers Care Place Change Roof Bolter Name Role Phone Rell Arguelles MD Primary Care Provider [phone] Reason for Visit * Reason Comments Coronary Artery Disease Coronary artery disease involving w[place] coronary artery of wilton heart without angina pectoris Encounter Details Date Type Department Care Team (Late st Contact Info) Description 04/21/2025 1:30 PM EDT Office Visit [facility] CARDIOLOGY [address] [facility] [address] [place] [address] Yasmany Prasad MD [address] [facility] [address] [place] [address] Coronary artery disease involving wilton coronary artery of wilton heart without angina pectoris (Primary Dx); Primary [...] Lead Post-Procedure Diagnose(s): Coronary artery disease involving wilton coronary artery of wilton heart without angina pectoris Images from the original note were not included. [facility] Cardiology [address] [place] [address], [address] [place], [place], [id number] [facility] FOLLOW UP NOTE Patient Care Team: Patient Care Team: Rell Arguelles MD as PCP - General (Internal Medicine) Edouard Torres MD as Consulting Physician (Hematology and Oncology) Chiquis Mcqueen APRN as Nurse Practitioner (Pulmonary Disease) Yasmany rPasad MD as Consulting Physician (Cardiology) Debbie Al APRN as Nurse Practitioner (Cardiology) Subjective: Chief Complaint Patient presents with Coronary Artery Disease Coronary artery disease involving wilton coronary artery of wilton heart without angina pectoris HPI: Michaelle Smith is a 79 y.o. female. Cardiac focused problem list: Coronary artery disease: Stress test on 05/14/2015, reversible perfusion defect in the LAD territory, EF 64%. Left heart catheterization 06/12/2015, bare metal stent to mid-LAD. Stress test 11/01/2022: Small-sized, moderately severe area of ischemia located in the anterior wall. Intermediate risk study. [facility], 11/09/2022: 50% ostial LAD stenosis as well [...] Info) Description 10/23/2025 10:45 AM EDT Registration [facility] PULMONARY & CRITICAL CARE MEDICINE [address] [place] [address] 10/23/2025 11:00 AM EDT Office Visit [facility] PULMONARY & CRITICAL CARE MEDICINE [address] [place] [address] 10/23/2025 11:30 AM EDT Office Visit [facility] PULMONARY & CRITICAL CARE MEDICINE [address] [place] [address] Chiquis Mcqueen APRN [address] [place] [address] 04/27/2026 1:45 PM EDT Office Visit [facility] CARDIOLOGY [address] [facility] [address] [place] [address] Debbie Al APRN [address] [facility] [address] [place] [address] documented as of this encounter Procedures Procedure Name Priority Date/Time Associated Diagnosis Comments ECG 12-LEAD Routine 04/21/2025 Coronary artery disease involving wilton coronary artery of wilton heart without angina pectoris documented in this [...] from the original note were not included. [facility] Cardiology [address] [place] [address], [address] [place], [place], [facility] FOLLOW UP NOTE Patient Care [...] Coronary Artery Disease Coronary artery disease involving wilton coronary artery of wilton heartwithout angina pectoris HPI: Michaelle Smith is a 79 y.o. female. Cardiac focused problem list: Coronary artery disease: Stress test on 05/14/2015, reversible perfusion defect in the LADterritory, EF 64%. Left heart catheterization 06/12/2015, bare metal stent to mid-LAD. Stress test 11/01/2022: Small-sized, moderately severe area of ischemialocated in the anterior wall. Intermediate risk study. [facility], 11/09/2022: 50% ostial LAD stenosis as well [...] Visit Diagnoses Diagnosis Coronary artery disease involving wilton coronary artery of wilton heart without angina pectoris- Primary Primary hypertension Unspecified essential hypertension Dyslipidemia, goal LDL below 70 documented in this encounter Care Teams Place Change Roof Bolter Relationship Specialty Start Date End Date Rell Arguelles MD [facility] [address] [facility] [address] PCP - General Internal Medicine 10/16/18 documented as of this encounter
--- NOTE | 2025-04-30 14:27 | XR_ITS ---
FINAL REPORT CLINICAL HISTORY: Right ankle injury COMPARISON: None FINDINGS: RIGHT ANKLE: 2 views of the right ankle were obtained. There is no acute fracture or dislocation. The joint spaces are intact. There is no soft tissue abnormality. IMPRESSION: No acute bony abnormality. Reviewed, Interpreted and Dictated by Pawan Good MD Transcribed by Aminata Uribe Authenticated and [facility]
--- OUTSIDE RECORDS SUMMARY | 2025-04-30 14:31 | XMS_ITS | Clinical Summary ---
Author Organization [facility] Address [address] [place] [address] Care Team Providers Care Production Manufacturing Worker Name Role Phone Rell Arguelles MD Primary Care Provider [phone] Allergies No known active allergies Medications aspirin 81 MG tablet Take 1 tablet by mouth Daily. 5 Active albuterol (PROVENTIL HFA;VENTOLIN HFA) 108 (90 BASE) MCG/ACT inhaler 2 puffs As Needed. ProAir HFA AERS; Patient Sig: ProAir HFA AERS ; 0; -Jun-2015; Active 5 Active Cyanocobalamin (VITAMIN B 12 PO) Take 1 tablet by mouth 3 (Three) Times a Week. Active pantoprazole (PROTONIX) 40 MG EC tablet Take 1 tablet by mouth As Needed. Active ALPRAZolam (XANAX) 0.5 MG tablet Take 1 tablet by mouth At Night As Needed for Anxiety. Active lisinopril (PRINIVIL,ZESTRI L) 20 MG tablet Take 1 tablet by mouth 2 (two) times a day. 180 tablet 3 0 Active ipratropium-albu terol (DUO-NEB) 0.5-2.5 mg/3 ml nebulizerIndicat ions:Chronic obstructive pulmonary disease, unspecified COPD type USE 1 AMPULE IN NEBULIZER EVERY 4 HOURS NEEDED FOR WHEEZING 360 mL 3 0 Active Coenzyme Q10 (COQ10 PO) Take 1 capsule by mouth Daily. Active hydroCHLOROthiaz ruby (HYDRODIURIL) 12.5 MG tablet TAKE 1 TABLET BY MOUTH EVERY MORNING FOR BLOOD PESSURE 3 Active vitamin D3 125 MCG (5000 UT) capsule capsule Take 1 capsule by mouth Daily. Active atorvastatin (LIPITOR) 10 MG tablet Take 1 tablet by mouth Daily. 5 Active Active Problems Problem Noted Date Diagnosed Date Environmental and seasonal allergies 04/24/2023 Abnormal stress test 11/03/2022 Overview (11/03/2022): Added automatically from request for surgery [id number] Dyslipidemia, goal LDL below 70 10/25/2018 Asthma 10/16/2018 Esophageal reflux 10/04/2017 Hypertension 10/20/2016 History of anxiety 06/15/2016 Coronary artery disease 06/15/2016 Overview (06/15/2016): History of History of arthritis 06/15/2016 History of asthma 06/15/2016 History of chronic obstructive lung disease 05/31 History of esophageal reflux 06/15/2016 History of hiatal hernia 06/15/2016 History of malignant neoplasm of lung 06/15/2016 Overview (10/23/2023): 2015 History of pulmonary emphysema 06/15/2016 COPD (chronic obstructive pulmonary disease) 05/2016 Adenocarcinoma of left lung 02/08/2016 Overview (05/31/2016): Images from the original note were not included. Encounters Date Type Department Care Team Description 04/21/2025 1:30 PM EDT Office Visit [facility] CARDIOLOG[facility] [address] [place] [address] Yasmany Prasad MD Coronary artery disease involving dot [place] coronary artery of dot lake heart without angina pectoris (Primary Dx); Primary hypertension; Dyslipidemia, goal LDL below 70 04/21/2025 Travel from Last 3 Months Immunizations Immunization Administration Dates Next Due 31-influenza Vac Quardvalent Preservativ 017 Arexvy (RSV, Adults 60+ yrs) 06/14/2023 COVID-19 (MODERNA) 1st,2nd,3 rd Dose Monovalent 06/09/2021,10/07/2020,09/09/2020 COVID-19 (MODERNA) BIVALENT 12+YRS 08/17/2022 COVID-19 (MODERNA) Monovalen t Original Booster 03/03/2022 Fluzone >6mos 04/30/2015 Fluzone High-Dose 65+YRS 05/05/2016 Influenza Seasonal Injectable 04/24/2018 Influenza TIV (IM) 04/30/2015,07/31/2013 Influenza, Unspecified 05/02/2022,04/30/2021 Pneumococcal Conjugate 20-Valent (PCV20) 023 Pneumococcal Polysaccharide (PPSV23) 05/31/2018, 05/31/2015,07/31/2012 Tdap 06/15/2020 Family History Medical History Relation Name Comments Arthritis Mother Hypertension Mother Stroke Mother mini Relation Name Status Comments Father Mother Social History Tobacco Use Types Packs/Day Years Used Date Smoking Tobacco: Former Cigarettes 1 20 0 10/25/1978 - 10/25/1998 Smokeless Tobacco: Never Tobacco Cessation:Counseling Given: Not Answered Alcohol Use Standard Drinks/Week Comments Yes 0 [...] on file Sexual Orientation Not on file Last Filed Vital Signs Vital Sign Reading Time Taken Comments Blood Pressure 114/60 04/21/2025 1:45 PM EDT Pulse 68 04/21/2025 1:45 PM EDT Temperature 36.7 C (98 F) 10/22/2024 10:35 AM EDT Respiratory Rate 18 11/09/2022 11:58 AM EDT Oxygen Saturation 95% 04/21/2025 1:45 PM EDT Inhaled Oxygen Concentration - - Weight 69.1 kg (152 lb 6.4 oz) 04/21/2025 1:45 P M EDT Height 163.8 cm (5' 4.5 ) 04/21/2025 1:45 PM EDT Body Mass Index 25.76 04/21/2025 1:45 PM EDT Plan of Treatment Upcoming Encounters Date Type Department Care Team (Late st Contact Info) Description 10/23/2025 10:45 AM EDT Registration [facility] PULMONARY & CRITICAL CARE MEDICINE [address] [place] [address] 10/23/2025 11:00 AM EDT Office Visit [facility] PULMONARY & CRITICAL CARE MEDICINE [address] [place] [address] 10/23/2025 11:30 AM EDT Office Visit [facility] PULMONARY & CRITICAL CARE MEDICINE [address] [place] [address] Chiquis Mcqueen, SHOVEL ENGINEER [address] [place] [address] 04/27/2026 1:45 PM EDT Office Visit [facility] [address] [facility] [address] [place] [address] Debbie Al, SHOVEL ENGINEER [address] [facility] [address] [place] [address] Health Maintenance Due Date Last Done Comments COLOGUARD 1992 COLON CANCER SCREENING 5 YEA R SIGMOIDOSCOPY [address] COLONOGRAPHY 1992 FECAL OCCULT BLOOD TEST 1992 FIT Testing (1 year) 1992 ZOSTER VACCINE (1 of 2) 1997 DXA SCAN 02/19/2017 02/19/2015 ANNUAL WELLNESS VISIT 04/13/2017 HEPATITIS C SCREENING 04/13/2017 LIPID PANEL 07/03/2024 07/03/2023, 10/29, 07/01/2022, Additional history exists INFLUENZA VACCINE 02/28/2025 05/08/2023, , 05/02/2022, Additional history exists COVID-19 Vaccine (2023-08 5 season) 2025 05/14/2024, 07/05/2023, 08/17/2022, Additional history exists COLONOSCOPY 11/27/2028 11/27/2018, 05/13/2014 COLORECTAL CANCER SCREENING 11/27/2028 TDAP/TD VACCINES (2 - Td or Tdap) 06/15/2030 020 LUNG CANCER SCREENING Discontinued 10/18/2022 , 10/27/2021, 10/27/2020, Additional history exists MAMMOGRAM Discontinued 05/09/2023, 04/30, 05/08/2023, Additional history exists Pneumococcal Vaccine 50+ Completed 023, 05/31/2018, 05/31/2015, Additional history exists RSV Vaccine - Adults Completed 06/14/2023 Procedures Procedure Name Priority Date/Time Associated Diagnosis Comments ECG 12-LEAD Routine 04/21/2025 Coronary artery disease involving dot [place] coronary artery of dot lake heart without angina pectoris LIPID PANEL STAT 11/09/2022 7:[address] CHEST W CONTRAST STAT 10/18/2022 1 0:13 AM EDT Adenocarcinoma of left lung from Last 3 Months or Most Recently Relevant to Health Maintenance Results * ECG 12-LEAD (04/21/2025) Narrative 04/21/2025 [...] from the original note were not included. [facility] Cardiology [address] [place] [address], [address] [place], [place], [facility] WWW.[facility]PITALBook&TableRESE[facility] FOLLOW UP NOTE Patient [...] Coronary Artery Disease Coronary artery disease involving [place] coronary artery of [place] heartwithout angina pectoris HPI: Michaelle Smith is a 79 y.o. female. Cardiac focused problem list: Coronary artery disease: Stress test on 05/14/2015, reversible perfusion defect in the LADterritory, EF 64%. Left heart catheterization 06/12/2015, bare metal stent to mid-LAD. Stress test 11/01/2022: Small-sized, moderately severe area of ischemialocated in the anterior wall. Intermediate risk study. [facility], 11/09/2022: 50% ostial LAD stenosis as well [...] Yasmany Prasad MD ECG ORDERABLES Final Result * Lipid Panel (11/09/2022 7:24 AM EDT) Total Cholesterol 162 0 - 200 mg/dL 11/09/2022 8:21 AM EDT [facility] Triglycerides 132 0 - 150 mg/dL 11/09/2022 8:21 AM EDT [facility] HDL Cholesterol 59 40 - 60 mg/dL 11/09/2022 8:21 AM EDT [facility] LDL Cholesterol 80 0 - 100 mg/dL 11/09/2022 8:21 AM EDT [facility] VLDL Cholesterol 23 5 - 40 mg/dL 11/09/2022 8:21 AM EDT [facility] LDL/HDL Ratio 1.30 11/09/2022 8:21 AM EDT [facility] Blood Line / Unknown 11/09/2022 7: 24 AM EDT 11/09/2022 7:38 AM EDT Narrative [facility] - 11/09/2022 8:21 AM EDT Cholesterol Reference Ranges (U.S. Department of Health and Human Services ATP III Classifications) Desirable <200 mg/dL Borderline High 200-239 mg/dL High Risk >240 mg/dL Triglyceride Reference Ranges (U.S. Department of Health and Human Services ATP III Classifications) Normal <150 mg/dL Borderline High 150-199 mg/dL High 200-499 mg/dL Very High >500 mg/dL HDL Reference Ranges (U.S. Department of Health and Human Services ATP III Classifications) Low <40 mg/dl (major risk factor for CHD) High >60 mg/dl ('negative' risk factor for CHD) LDL Reference Ranges (U.S. Department of Health and Human Services ATP III Classifications) Optimal <100 mg/dL Near Optimal 100-129 mg/dL Borderline High 130-159 mg/dL High 160-189 mg/dL Very High >189 mg/dL us Debbie Al APRN LAB BLOOD ORDERABLES Final R esult [facility]
[address] [place] [address], * CT Chest With Contrast Diagnostic (10/18/2022 10:13 AM EDT) Anatomical Region Laterality Modality Chest N/A Computed Tomogra phy 10/18/2022 10:4 6 AM EDT Impressions 10/18/2022 10:56 AM EDT Impression: Stable mild chronic appearing lung changes compared to 10/27/2021 exam. No evidence of recurrent malignancy or other new chest pathology. Moderate hiatal hernia noted. Electronically Signed: Phong Lindo 10/18/2022 10:56 AM EDT Workstation ID: [id number] Narrative 10/18/2022 10:[address] CHEST W CONTRAST DIAGNOSTIC Date of Exam: 10/18/2022 9:54 AM EDT Indication: follow up left lung adenocarcinoma. Comparison: 10/27/2021 Technique: Axial CT images were obtained of the chest after the uneventful intravenous administration of 75 mL Isovue 300. Reconstructed coronal and sagittal images were also obtained. Automated exposure control and iterative construction methods were used. Findings: Previous exam report from 10/27/2021 noted stable left-sided postoperative changes, and no evidence of recurrent disease. Images of the lungs show thin linear scarring in the left lung base, associated with mild focal bronchiectasis. No interval change is appreciated. No new pulmonary parenchymal disease is identified elsewhere. There is no pleural effusion. Mild apical pleural scarring and minimal apical groundglass changes are all stable. A small elongated nodular density in the right middle lobe, image 46, appears to represent focal scarring, rather than a small pulmonary varix, and is unchanged at approximately 5 x 2.5 mm. The larger order airways appear normally patent. Mediastinal images show no evidence of mass, adenopathy or pericardial effusion. There is a moderate sized hiatal hernia, a little larger in size than on the prior study. There is moderate to extensive coronary artery calcium. Included images the upper abdomen show fatty liver change. No significant abnormalities are seen of the included portions of the spleen, pancreatic tail, adrenal glands, or upper renal poles. Bony structures appear to be intact. Procedure Note Phong Lindo MD - 10/18/2022 CT CHEST W CONTRAST DIAGNOSTIC Date of Exam: 10/18/2022 9:54 AM EDT Indication: follow up left lung adenocarcinoma. Comparison: 10/27/2021 Technique: Axial CT images were obtained of the chest after the uneventfulintravenous administration of 75 mL Isovue 300. Reconstructed coronal andsagittal images were also obtained. Automated exposure control anditerative construction methods were used. Findings: Previous exam report from 10/27/2021 noted stable left-sided postoperativechanges, and no evidence of recurrent disease. Images of the lungs show thin linear scarring in the left lung base,associated with mild focal bronchiectasis. No interval change isappreciated. No new pulmonary parenchymal disease is identified elsewhere.There is no pleural effusion. Mild apical pleural scarring and minimal apical groundglass changes are all stable. Asmall elongated nodular density in the right middle lobe, image 46,appears to represent focal scarring, rather than a small pulmonary varix,and is unchanged at approximately 5 x 2.5 mm. The larger order airways appear normally patent. Mediastinal images show no evidence of mass, adenopathy or pericardialeffusion. There is a moderate sized hiatal hernia, a little larger in sizethan on the prior study. There is moderate to extensive coronary arterycalcium. Included images the upper abdomen show fatty liver change. No significantabnormalities are seen of the included portions of the spleen, pancreatictail, adrenal glands, or upper renal poles. Bony structures appear to beintact. IMPRESSION: Impression: Stable mild chronic appearing lung changes compared to 10/27/2021 exam. Noevidence of recurrent malignancy or other new chest pathology. Moderatehiatal hernia noted. Electronically Signed: Phong Lindo 10/18/2022 10:56 AM EDT Workstation ID: [id number] Eva Marina APRN IMG CT ORDERABLES Final Resu lt from Last 3 Months or Most Recently Relevant to Health Maintenance Insurance MEDICARE A & B Member Subscriber Plan / Payer (Ef fective 2003-Present) Name:Michaelle Smith Member ID:[id number] Relation to Subscriber:Self Name:Michaelle Smith Subscriber ID:[id number] Payer ID:[id number] Group ID:Not on file Type:Not on file Address: [address] Advance Directives * CPR (Attempt to Resuscitate) (Latest Code Status on File) Date Activated Date Inactivated Comments 11/09/2022 11:54 AM 11/09/2022 7:29 PM Question Answer Comments Code Status (Patient has no pulse and is not breathing): CPR (Attempt to Resuscitate) Medical Interventions (Patie nt has pulse or is breathing): Full Level Of Support Discussed With: Patient Care Teams Production Manufacturing Worker Relationship Specialty Start Date End Date Rell Arguelles MD [address] [facility] [address] [address] PCP - General Internal Medicine 10/16/18
--- OUTSIDE RECORDS SUMMARY | 2025-04-30 14:31 | XMS_ITS ---
Author Organization [facility] Address [address] [place] [address] Care Team Providers Care Interior Systems Carpenter Name Role Phone Rell Arguelles MD Primary Care Provider Active Problems Problem Noted Date Diagnosed Date Environmental and seasonal allergies 04/24/2023 Abnormal stress test 11/03/2022 Overview (11/03/2022): Added automatically from request for surgery [id number] Dyslipidemia, goal LDL below 70 10/25/2018 Asthma [...] from the original note were not included. Current Treatment and Therapy Plans No current plan information found. Past Treatment and Therapy Plans No past plan information found. Lifetime Dose Tracking * Chemical Lifetime Dose Automatic Entry Manual Entr y Cumulative Air Kerma 442 mGy 0 mGy 442 mGy
--- OUTSIDE RECORDS SUMMARY | 2025-04-30 14:31 | XMS_ITS | Clinical Summary ---
Author Organization Healthcare Address [address] [place] [address] Care Team Providers Care Senior Data Mining Analyst Name Role Phone Yasmany Noonan MD Primary Care Provider [phone] Immunizations Immunization Administration Dates Next Due Influenza, seasonal, injectable 04/30/2015,07/31 Pneumococcal Polysaccharide PPV23 05/31/2015,07/2012 Family History Medical History Relation Name Comments COPD Other 1 Hypertension Other 2 Other cancer Other 3 Relation Name Status Comments Other 1 Other 2 Other 3 Social History Tobacco Use Types Packs/Day Years Used Date Smoking Tobacco: Former Comments Unknown Sex and Gender Information Value Date Recorded Sex Assigned at Not on file Legal Sex Female 8:15 PM EDT Gender Identity Not on file Sexual Orientation Not on file Last Filed Vital Signs Vital Sign Reading Time Taken Comments Blood Pressure - - Pulse - - Temperature - - Respiratory Rate - - Oxygen Saturation - - Inhaled Oxygen Concentration - - Weight 68 kg (150 lb) 09/09/2015 1:51 PM EST Height 165.1 cm (5' 5 ) 09/09/2015 1:51 PM EST Body Mass Index 24.96 09/09/2015 1:51 PM EST Plan of Treatment Not on file Care Teams Senior Data Mining Analyst Relationship Specialty Start Date End Date Yasmany Noonan MD [address] [id number] PCP - General 12/11/20
--- OUTSIDE RECORDS SUMMARY | 2025-04-30 14:31 | XMS_ITS | Encounter Summary ---
Author Organization [facility] Address [address] [place] [address] Care Team Providers Care Licensed Social Worker Name Role Phone Rell Arguelles MD Primary Care Provider [phone] Encounter Details Date Type Department Care Team (Latest Contact Info) Description 04/21/2025 Travel Social History Tobacco Use Types Packs/Day Years [...] Info) Description 10/23/2025 10:45 AM EDT Registration [facility] PULMONARY & CRITICAL CARE MEDICINE [address] [place] [address] 10/23/2025 11:00 AM EDT Office Visit [facility] PULMONARY & CRITICAL CARE MEDICINE [address] [place] [address] 10/23/2025 11:30 AM EDT Office Visit [facility] PULMONARY & CRITICAL CARE MEDICINE [address] [place] [address] Chiquis Mcqueen, TRIPE WASHER [address] [place] [address] 04/27/2026 1:45 PM EDT Office Visit [facility] CARDIOLOGY [address] [address] Debbie Al, TRIPE WASHER [address] [address] documented as of this encounter Visit Diagnoses Not on filedocumented in this encounter Care Teams Licensed Social Worker Relationship Specialty Start Date End Date Rell Arguelles MD [address] [facility] [address] [place] [address] PCP - General Internal Medicine 10/16/18 documented as of this encounter
== END 2025-04-30 23:59 | disposition home or self-care (01) ==
LOC: RAD 14:25
PROVIDERS: PCP Internal Medicine; Visit Provider Internal Medicine
DX: S99.911A Unspecified injury of right ankle, initial encounter (principal); X58.XXXA Exposure to other specified factors, initial encounter
CPT/HCPCS: 73600

== ENCOUNTER 2025-05-29 10:07 | Outpatient (CLI) | payer MEDICARE, OTHER, SELFPAY ==
--- OUTSIDE RECORDS SUMMARY | 2023-10-23 09:29 | XMS_ITS | Encounter Summary ---
[facility] Address [address] [place] [address] Care Team Providers Care Maintenance Custodian Name Role Phone Rell Arguelles MD Primary Care Provider [phone] Encounter Details Date Type Department Care Team (Late st Contact Info) Description 10/23/2023 9:29 AM EDT Hospital Encounter [facility] PULMONARY & CRITICAL CARE MEDICINE [address] [place] [id number] Social History Tobacco Use Types Packs/Day Years [...] Info) Description 10/23/2025 10:45 AM EDT Registration [facility] PULMONARY & CRITICAL CARE MEDICINE [address] [place] [address] 10/23/2025 11:00 AM EDT Office Visit [facility] PULMONARY & CRITICAL CARE MEDICINE [address] [place] [address] 10/23/2025 11:30 AM EDT Office Visit [facility] PULMONARY & CRITICAL CARE MEDICINE [address] [place] [address] Chiquis Mcqueen, ADMINISTRATIVE INTERN [address] [place] [address] 04/27/2026 1:45 PM EDT Office Visit [facility] CARDIOLOGY [address] [facility] [address] [place] [address] Debbie Al, ADMINISTRATIVE INTERN [address] [facility] [address] [place] [address] documented as of this encounter Procedures Procedure [...] MD 10/23/2023 3:39 PM EDT Workstation ID: [id number] Narrative 10/23/2023 3:39 PM EDT XR CHEST [...] MD 10/23/2023 3:39 PM EDT Workstation ID: [id number] Chiquis Mcqueen APRN IMG DIAGNOSTIC IMAGING ORDER MAIN Final Result documented in this encounter Visit Diagnoses Not on filedocumented in this encounter Care Teams Maintenance Custodian Relationship Specialty Start Date End Date Rell Arguelles MD [address] [place] [facility] [address] [place] [address] PCP - General Internal Medicine 10/16/18 documented as of this encounter
--- OUTSIDE RECORDS SUMMARY | 2024-10-22 10:10 | XMS_ITS | Encounter Summary ---
[facility] [address] [place] [address] Care Team Providers Care Concrete Truck Driver Name Role Phone Rell Arguelles MD Primary Care Provider Encounter Details Date Type Department Care Team (Late st Contact Info) Description 10/22/2024 10:10 AM EDT Hospital Encounter [facility] PULMONARY & CRITICAL CARE MEDICINE [address] [place] [phone] Social History Tobacco Use Types Packs/Day Years [...] Info) Description 10/23/2025 10:45 AM EDT Registration [facility] PULMONARY & CRITICAL CARE MEDICINE [address] [place] [address] 10/23/2025 11:00 AM EDT Office Visit [facility] PULMONARY & CRITICAL CARE MEDICINE [address] [place] [address] 10/23/2025 11:30 AM EDT Office Visit [facility] PULMONARY & CRITICAL CARE MEDICINE [address] [place] [address] Chiquis Mcqueen, MILLWRIGHT [address] [place] [address] 04/27/2026 1:45 PM EDT Office Visit [facility] CARDIOLOGY [address] [facility] [address] [place] [address] Debbie Al, MILLWRIGHT [address] [facility] [address] [place] [address] documented as of this encounter Procedures Procedure [...] MD 10/25/2024 2:01 PM EDT Workstation ID: [id number] Narrative 10/25/2024 2:01 PM EDT XR CHEST [...] MD 10/25/2024 2:01 PM EDT Workstation ID: [id number] Chiquis Mcqueen APRN IMG DIAGNOSTIC IMAGING ORDER MAIN Final Result documented in this encounter Visit Diagnoses Not on filedocumented in this encounter Care Teams Concrete Truck Driver Relationship Specialty Start Date End Date Rell Arguelles MD [address] [place] [facility] [address] [place] [address] PCP - General Internal Medicine 10/16/18 documented as of this encounter
--- OUTSIDE RECORDS SUMMARY | 2025-04-21 13:30 | XMS_ITS | Encounter Summary ---
[facility] Organization [facility] Address [address] [place] [id number] Care Team Providers Care Welfare Officer Name Role Phone Rell Arguelles MD Primary Care Provider [phone] Reason for Visit * Reason Comments Coronary Artery Disease Coronary artery disease involving orutsararmiut coronary artery of orutsararmiut heart without angina pectoris Encounter Details Date Type Department Care Team (Late st Contact Info) Description 04/21/2025 1:30 PM EDT Office Visit [facility] CARDIOLOGY [address] [facility] [address] [place] [address] Yasmany Prasad MD [address] [facility] [address] [place] [address] Coronary artery disease involving orutsararmiut coronary artery of orutsararmiut heart without angina pectoris (Primary Dx); Primary hypertension; Dyslipidemia, goal LDL below 70 Social History Tobacco Use Types Packs/Day Years [...] on file documented as of this encounter Last Filed Vital Signs Vital Sign Reading Time Taken Comments Blood Pressure 114/60 04/21/2025 1:45 PM EDT Pulse 68 04/21/2025 1:45 PM EDT Temperature - - Respiratory Rate - - Oxygen Saturation 95% 04/21/2025 1:45 PM EDT Inhaled Oxygen Concentration - - Weight 69.1 kg (152 lb 6.4 oz) 04/21/2025 1:45 P M EDT Height 163.8 cm (5' 4.5 ) 04/21/2025 1:45 PM EDT Body Mass Index 25.76 04/21/2025 1:45 PM EDT documented in this encounter Patient Instructions * Attachments The following attachments cannot be sent through Care Everywhere. * ADVANCE CARE PLANNING AVS documented in this encounter Progress Notes * Yasmany Prasad MD - 04/21/2025 1:30 PM EDTAssociated Order(s): ECG 12 Lead Post-Procedure Diagnose(s): Coronary artery disease involving orutsararmiut coronary artery of orutsararmiut heart without angina pectoris Images from the original note were not included. [facility] Cardiology [address] [place] [address], [address] [place], [place], [id number] WWW.[facility] FOLLOW UP NOTE Patient Care Team: Patient Care Team: Rell Arguelles MD as PCP - General (Internal Medicine) Edouard Torres MD as Consulting Physician (Hematology and Oncology) Chiquis Mcqueen APRN as Nurse Practitioner (Pulmonary Disease) Yasmany Prasad MD as Consulting Physician (Cardiology) Debbie Al APRN as Nurse Practitioner (Cardiology) Subjective: Chief Complaint Patient presents with Coronary Artery Disease Coronary artery disease involving orutsararmiut coronary artery of orutsararmiut heart without angina pectoris HPI: Michaelle Smith is a 79 y.o. female. Cardiac focused problem list: Coronary artery disease: Stress test on 05/14/2015, reversible perfusion defect in the LAD territory, EF 64%. Left heart catheterization 06/12/2015, bare metal stent to mid-LAD. Stress test 11/01/2022: Small-sized, moderately severe area of ischemia located in the anterior wall. Intermediate risk study. [facility], 11/09/2022: 50% ostial LAD stenosis as well as 30% tubular in-stent restenosis in the mid LAD. In-stent restenosis is status post balloon angioplasty. Left lower lobe cancer, status post VATS and wedge resection 08/15/2015. COPD stage III Hypertension. Dyslipidemia Arthritis. GERD Anxiety. Surgical history: Hysterectomy. Left nodule removed from the neck. Subjective Patient presents today for follow up. Doing well from a cardiac standpoint since her last visit. Denies chest pain, palpitations. Has stable, chronic shortness of breath. Follows with pulmonary. Review of Systems: As noted above in the HPI PFSH: Patient Active Problem List Diagnosis Adenocarcinoma of left lung COPD (chronic obstructive pulmonary disease) History of anxiety Coronary artery disease History of arthritis History of asthma History of chronic obstructive lung disease History of esophageal reflux History of hiatal hernia History of malignant neoplasm of lung History of pulmonary emphysema Hypertension Esophageal reflux Asthma Dyslipidemia, goal LDL below 70 Abnormal stress test Environmental and seasonal allergies Current Outpatient Medications: albuterol (PROVENTIL HFA;VENTOLIN HFA) 108 (90 BASE) MCG/ACT inhaler, 2 puffs As Needed. ProAir HFAAERS; Patient Sig: ProAir HFA AERS ; 0; -Jun-2015; Active, Disp: , Rfl: ALPRAZolam (XANAX) 0.5 MG tablet, Take 1 tablet by mouth At Night As Needed for Anxiety., Disp: , Rfl: aspirin 81 MG tablet, Take 1 tablet by mouth Daily., Disp: , Rfl: atorvastatin (LIPITOR) 10 MG tablet, Take 1 tablet by mouth Daily., Disp: , Rfl: Coenzyme Q10 (COQ10 PO), Take 1 capsule by mouth Daily., Disp: , Rfl: Cyanocobalamin (VITAMIN B 12 PO), Take 1 tablet by mouth 3 (Three) Times a Week., Disp: , Rfl: hydroCHLOROthiazide (HYDRODIURIL) 12.5 MG tablet, TAKE 1 TABLET BY MOUTH EVERY MORNING FOR BLOOD PESSURE, Disp: , Rfl: ipratropium-albuterol (DUO-NEB) 0.5-2.5 mg/3 ml nebulizer, USE 1 AMPULE IN NEBULIZER EVERY 4 HOURS NEEDED FOR WHEEZING, Disp: 360 mL, Rfl: 3 lisinopril (PRINIVIL,ZESTRIL) 20 MG tablet, Take 1 tablet by mouth 2 (two) times a day., Disp: 180 tablet, Rfl: 3 pantoprazole (PROTONIX) 40 MG EC tablet, Take 1 tablet by mouth As Needed., Disp: , Rfl: vitamin D3 125 MCG (5000 UT) capsule capsule, Take 1 capsule by mouth Daily., Disp: , Rfl: reports that she quit smoking about 26 years ago. Her smoking use included cigarettes. She started smoking about 46 years ago. She has a 20 pack-year smoking history. She has never used smokeless tobacco. Objective: Physical exam: BP 114/60 (BP Location: Right arm, Patient Position: Sitting) Pulse 68 Ht 163.8 cm (64.5 ) Wt69.1 kg (152 lb 6.4 oz) LMP (LMP Unknown) SpO2 95% BMI 25.76 kg/m?? CONSTITUTIONAL: No acute distress CARDIOVASCULAR: Regular rate and rhythm with normal S1 and S2. Without murmur. PERIPHERAL VASCULAR: Normal radial pulse. Carotid duplex US Labs: Lab Results Component Value Date LDL 80 11/09/2022 No components found for: LDLDIRECTC Diagnostic Data: ECG 12 Lead Date/Time: 04/21/2025 2:24 PM Performed by: Yasmany Prasad MD Authorized by: Yasmany Prasad MD Comparison: compared with previous ECG from 03/04/2024 Similar to previous ECG Comparison to previous ECG: Nonspecific ST abnormality unchanged Rhythm: sinus rhythm Results for orders placed during the hospital encounter of 11/09/22 Adult Transthoracic Echo Complete w/ Color, Spectral and Contrast if Necessary Per Protocol 11/09/2022 6:19 PM Interpretation Summary Left ventricular systolic function is normal. Left ventricular ejection fraction appears to be 51 -55%. Left ventricular wall thickness is consistent with mild concentric hypertrophy. There is mild calcification of the aortic valve. Mild aortic valve regurgitation is present. Mild mitral valve regurgitation is present. Mild tricuspid valve regurgitation is present. Assessment and Plan: Coronary artery disease Dyslipidemia, goal LDL below 70 -Currently without angina. -Continue aspirin, statin -Continue efforts towards risk factor and lifestyle modifications including heart healthy diet, regular exercise -Will obtain recent labs from PCP. Primary hypertension -Continue current related medications. - Return in about 1 year (around 04/21/2026) for Next follow up with Debbie Al APRN, Next followup with an ECG, if none in last year. documented in this encounter Plan of Treatment Upcoming Encounters Date Type Department Care Team (Late st Contact Info) Description 10/23/2025 10:45 AM EDT Registration [facility] PULMONARY & CRITICAL CARE MEDICINE [address] [place] [address] 10/23/2025 11:00 AM EDT Office Visit [facility] PULMONARY & CRITICAL CARE MEDICINE [address] [place] [address] 10/23/2025 11:30 AM EDT Office Visit [facility] PULMONARY & CRITICAL CARE MEDICINE [address] [place] [address] Chiquis Mcqueen APRN [address] [place] [address] 04/27/2026 1:45 PM EDT Office Visit [facility] CARDIOLOGY [address] [facility] [address] [place] [address] Debbie Al APRN [address] [facility] [address] [place] [address] documented as of this encounter Procedures Procedure Name Priority Date/Time Associated Diagnosis Comments ECG 12-LEAD Routine 04/21/2025 Coronary artery disease involving orutsar[place]iut coronary artery of orutsararmiut heart without angina pectoris documented in this encounter Results * ECG 12-LEAD (04/21/2025) Narrative 04/21/2025 Yasmany Prasad MD 04/21/2025 2:27 PM ECG 12 Lead Date/Time: 04/21/2025 2:24 PM Performed by: Yasmany Prasad MD Authorized by: Yasmany Prasad MD Comparison: compared with previous ECG from 03/04/2024 Similar to previous ECG Comparison to previous ECG: Nonspecific ST abnormality unchanged Rhythm: sinus rhythm Procedure Note Yasmany Prasad MD - 04/21/2025 1:30 PM EDT Images from the original note were not included. [facility] Cardiology [address] [place] [address], [address] [place], [place], [facility] WWW.[facility] [employer] [facility] FOLLOW UP NOTE Patient Care Team: Patient Care Team: Rell Arguelles MD as PCP - General (Internal Medicine) Edouard Torres MD as Consulting Physician (Hematology and Oncology) Chiquis Mcqueen APRN as Nurse Practitioner (Pulmonary Disease) Yasmany Prasad MD as Consulting Physician (Cardiology) Debbie Al APRN as Nurse Practitioner (Cardiology) Subjective: Chief Complaint Patient presents with Coronary Artery Disease Coronary artery disease involving or[place] coronary artery of orutsararmiut heartwithout angina pectoris HPI: Michaelle Smith is a 79 y.o. female. Cardiac focused problem list: Coronary artery disease: Stress test on 05/14/2015, reversible perfusion defect in the LADterritory, EF 64%. Left heart catheterization 06/12/2015, bare metal stent to mid-LAD. Stress test 11/01/2022: Small-sized, moderately severe area of ischemialocated in the anterior wall. Intermediate risk study. [facility], 11/09/2022: 50% ostial LAD stenosis as well as 30% tubular in- stentrestenosis in the mid LAD. In-stent restenosis is status post balloonangioplasty. Left lower lobe cancer, status post VATS and wedge resection 08/15/2015. COPD stage III Hypertension. Dyslipidemia Arthritis. GERD Anxiety. Surgical history: Hysterectomy. Left nodule removed from the neck. Subjective Patient presents today for follow up. Doing well from a cardiacstandpoint since her last visit. Denies chest pain, palpitations. Hasstable, chronic shortness of breath. Follows with pulmonary. Review of Systems: As noted above in the HPI PFSH: Patient Active Problem List Diagnosis Adenocarcinoma of left lung COPD (chronic obstructive pulmonary disease) History of anxiety Coronary artery disease History of arthritis History of asthma History of chronic obstructive lung disease History of esophageal reflux History of hiatal hernia History of malignant neoplasm of lung History of pulmonary emphysema Hypertension Esophageal reflux Asthma Dyslipidemia, goal LDL below 70 Abnormal stress test Environmental and seasonal allergies Current Outpatient Medications: albuterol (PROVENTIL HFA;VENTOLIN HFA) 108 (90 BASE) MCG/ACT inhaler, 2puffs As Needed. ProAir HFA AERS; Patient Sig: ProAir HFA AERS ; 0;-Jun-2015; Active, Disp: , Rfl: ALPRAZolam (XANAX) 0.5 MG tablet, Take 1 tablet by mouth At Night AsNeeded for Anxiety., Disp: , Rfl: aspirin 81 MG tablet, Take 1 tablet by mouth Daily., Disp: , Rfl: atorvastatin (LIPITOR) 10 MG tablet, Take 1 tablet by mouth Daily.,Disp: , Rfl: Coenzyme Q10 (COQ10 PO), Take 1 capsule by mouth Daily., Disp: , Rfl: Cyanocobalamin (VITAMIN B 12 PO), Take 1 tablet by mouth 3 (Three) Timesa Week., Disp: , Rfl: hydroCHLOROthiazide (HYDRODIURIL) 12.5 MG tablet, TAKE 1 TABLET BY MOUTHEVERY MORNING FOR BLOOD PESSURE, Disp: , Rfl: ipratropium-albuterol (DUO-NEB) 0.5-2.5 mg/3 ml nebulizer, USE 1 AMPULEIN NEBULIZER EVERY 4 HOURS NEEDED FOR WHEEZING, Disp: 360 mL, Rfl: 3 lisinopril (PRINIVIL,ZESTRIL) 20 MG tablet, Take 1 tablet by mouth 2(two) times a day., Disp: 180 tablet, Rfl: 3 pantoprazole (PROTONIX) 40 MG EC tablet, Take 1 tablet by mouth AsNeeded., Disp: , Rfl: vitamin D3 125 MCG (5000 UT) capsule capsule, Take 1 capsule by mouthDaily., Disp: , Rfl: reports that she quit smoking about 26 years ago. Her smoking useincluded cigarettes. She started smoking about 46 years ago. She has a 20pack-year smoking history. She has never used smokeless tobacco. Objective: Physical exam: BP 114/60 (BP Location: Right arm, Patient Position: Sitting) Pulse 68 Ht 163.8 cm (64.5 ) Wt 69.1 kg (152 lb 6.4 oz) LMP (LMP Unknown) SpO2 95% BMI 25.76 kg/m CONSTITUTIONAL: No acute distress CARDIOVASCULAR: Regular rate and rhythm with normal S1 and S2. Withoutmurmur. PERIPHERAL VASCULAR: Normal radial pulse. Carotid duplex US Labs: Lab Results Component Value Date LDL 80 11/09/2022 No components found for: LDLDIRECTC Diagnostic Data: ECG 12 Lead Date/Time: 04/21/2025 2:24 PM Performed by: Yasmany Prasad MD Authorized by: Yasmany Prasad MD Comparison: compared with previous ECGfrom 03/04/2024 Similar to previous ECG Comparison to previous ECG: Nonspecific ST abnormality unchanged Rhythm: sinus rhythm Results for orders placed during the hospital encounter of 11/09/22 Adult Transthoracic Echo Complete w/ Color, Spectral and Contrast ifNecessary Per Protocol 11/09/2022 6:19 PM Interpretation Summary Left ventricular systolic function is normal. Left ventricular ejectionfraction appears to be 51 - 55%. Left ventricular wall thickness is consistent with mild concentrichypertrophy. There is mild calcification of the aortic valve. Mild aortic valve regurgitation is present. Mild mitral valve regurgitation is present. Mild tricuspid valve regurgitation is present. Assessment and Plan: Coronary artery disease Dyslipidemia, goal LDL below 70 -Currently without angina. -Continue aspirin, statin -Continue efforts towards risk factor and lifestyle modificationsincluding heart healthy diet, regular exercise -Will obtain recent labs from PCP. Primary hypertension -Continue current related medications. - Return in about 1 year (around 04/21/2026) for Next follow up with LANDRY Good, Next follow up with an ECG, if none in last year. Yasmany Prasad MD ECG ORDERABLES Final Result documented in this encounter Visit Diagnoses Diagnosis Coronary artery disease involving or[place]ararmiut coronary artery of orutsararmiut heart without angina pectoris- Primary Primary hypertension Unspecified essential hypertension Dyslipidemia, goal LDL below 70 documented in this encounter Care Teams Welfare Officer Relationship Specialty Start Date End Date Rell Arguelles MD [facility] [address] [facility] [address] PCP - General Internal Medicine 10/16/18 documented as of this encounter
--- NOTE | 2025-05-29 10:30 | MM_ITS ---
PROCEDURE INFORMATION: Exam: MG Bilateral Screening 3D Mammography Exam date and time: 05/29/2025 10:17 AM Age: 79 years old Clinical indication: Screening. Maternal aunt had breast cancer. TECHNIQUE: Imaging protocol: Bilateral Screening tomosynthesis and 2D mammography including computer-aided detection (CAD) when performed. COMPARISON: 1. MG MM DIG SCREENING MAMM BI W/CAD 05/20/2024 10:29 AM 2. MG MM DIG SCREENING MAMM BI W/CAD 05/08/2023 12:54 PM 3. MG MM DIG SCREENING MAMM BI W/CAD 04/22/2022 9:46 AM FINDINGS: MAMMOGRAPHY: Breast composition: There are scattered areas of fibroglandular density. Mass: No suspicious mass. Architectural distortion: None. Calcifications: No suspicious calcifications. Asymmetric density: None. Skin thickening: None. Axillary adenopathy: None. IMPRESSION: No mammographic evidence of malignancy. Annual screening is recommended unless otherwise clinically indicated. ASSESSMENT: BI-RADS Category 1: Negative.
--- OUTSIDE RECORDS SUMMARY | 2025-05-29 10:35 | XMS_ITS | Clinical Summary ---
Author Organization [facility] Address [address] [place] [address] Care Team Providers Care Chemical Radiation Technician Name Role Phone Rell Arguelles MD Primary Care Provider [phone] Allergies No known active allergies Medications aspirin [...] (11/03/2022): Added automatically from request for surgery [id number] Dyslipidemia, goal LDL below 70 10/25/2018 Asthma [...] Description 04/21/2025 1:30 PM EDT Office Visit [facility] CARDIOLOG[facility] [address] [place] [address] Yasmany Prasad MD Coronary artery disease involving little shell tribe coronary artery of little shell tribe heart without angina pectoris (Primary Dx); Primary [...] 10/23/2025 10:45 AM EDT Registration [facility] PULMONARY & CRITICAL CARE MEDICINE [address] [place] [address] 10/23/2025 11:00 AM EDT Office Visit [facility] PULMONARY & CRITICAL CARE MEDICINE [address] [place] [address] 10/23/2025 11:30 AM EDT Office Visit [facility] PULMONARY & CRITICAL CARE MEDICINE [address] [place] [address] Chiquis Mcqueen, LABORER PETROLEUM REFINERY [address] [place] [address] 04/27/2026 1:45 PM EDT Office Visit [facility] CARDIOLOGY [address] [facility] [address] [place] [address] Debbie Al, LABORER PETROLEUM REFINERY [address] [facility] [address] [place] [address] Health Maintenance Due Date Last Done Comments [...] , 05/02/2022, Additional history exists COVID-19 Vaccine (8 - Modern a risk 2023- season) 2025 05/14/2024, 07/05/2023, 08/17/2022, Additional history [...] 12-LEAD Routine 04/21/2025 Coronary artery disease involving little shell tribe coronary artery of little shell tribe heart without angina pectoris LIPID PANEL STAT [...] from the original note were not included. [facility] Cardiology [address] [place] [address], [address] [place], [place], [id number] WWW.[facility] FL[facility]ENCEActifiRES[facility] FOLLOW UP NOTE [...] Coronary Artery Disease Coronary artery disease involving little shell tribe coronary artery of little shell tribe heartwithout angina pectoris HPI: Michaelle Smith is a 79 y.o. female. Cardiac focused problem list: Coronary artery disease: Stress test on 05/14/2015, reversible perfusion defect in the LADterritory, EF 64%. Left heart catheterization 06/12/2015, bare metal stent to mid-LAD. Stress test 11/01/2022: Small-sized, moderately severe area of ischemialocated in the anterior wall. Intermediate risk study. [facility], 11/09/2022: 50% ostial LAD stenosis as [...] - 200 mg/dL 11/09/2022 8:21 AM EDT [facility] Triglycerides 132 0 - 150 mg/dL 11/09/2022 8:21 AM EDT [facility] HDL Cholesterol 59 40 - 60 mg/dL 11/09/2022 8:21 AM EDT [facility] LDL Cholesterol 80 0 - 100 mg/dL 11/09/2022 8:21 AM EDT [facility] VLDL Cholesterol 23 5 - 40 mg/dL 11/09/2022 8:21 AM EDT [facility] LDL/HDL Ratio 1.30 11/09/2022 8:21 AM EDT [facility] Blood Line / Unknown 11/09/2022 7: 24 AM EDT 11/09/2022 7:38 AM EDT Narrative [facility] - 11/09/2022 8:21 AM EDT [...] APRN LAB BLOOD ORDERABLES Final R esult [facility]
[address] [place] [address], * CT Chest With Contrast Diagnostic (10/18/2022 [...] Lindo 10/18/2022 10:56 AM EDT Workstation ID: [id number] Narrative 10/18/2022 10:[address] CHEST [...] Lindo 10/18/2022 10:56 AM EDT Workstation ID: [id number] Eva Marina APRN IMG CT ORDERABLES Final Resu lt from Last 3 Months or Most Recently Relevant to Health Maintenance Insurance MEDICARE A & B [employer] [place] Advance Directives * CPR (Attempt to Resuscitate) (Latest Code Status on File) Date Activated Date Inactivated Comments 11/09/2022 11:54 AM 11/09/2022 7:29 PM Question Answer Comments Code Status (Patient has no pulse and is not breathing): CPR (Attempt to Resuscitate) Medical Interventions (Patie nt has pulse or is breathing): Full Level Of Support Discussed With: Patient Care Teams Chemical Radiation Technician Relationship Specialty Start Date End Date Rell Arguelles MD [address] [facility] [address] [facility] [place] [place] [address] PCP - General Internal Medicine 10/16/18
--- OUTSIDE RECORDS SUMMARY | 2025-05-29 10:35 | XMS_ITS | Encounter Summary ---
Author Organization [facility] Address [address] [place] [address] Care Team Providers Care Retail Furniture Sales Name Role Phone Rell Arguelles MD Primary [...] CENTER PULMONARY & CRITICAL CARE MEDICINE [address] [place] [address] 10/23/2025 11:00 AM EDT Office Visit [facility]UL[facility]ICAL CARE MEDICINE [address] [place] [address] 10/23/2025 11:30 AM EDT Office Visit [facility] PULMONARY & CRITICAL CARE MEDICINE [address] [place] [address] Chiquis Mcqueen, COMMERCIAL MARKETING SPECIALIST [address] [place] [address] 04/27/2026 1:45 PM EDT Office Visit [facility] CARDIOLOGY [address] [address] Debbie Al, COMMERCIAL MARKETING SPECIALIST [address] [address] documented as of this encounter Visit Diagnoses Not on filedocumented in this encounter Care Teams Retail Furniture Sales Relationship Specialty Start Date End Date Rell Arguelles MD [address] [facility] [address] [place] [address] PCP - General Internal Medicine 10/16/18 documented as of this encounter
--- OUTSIDE RECORDS SUMMARY | 2025-05-29 10:35 | XMS_ITS ---
Author Organization [facility] Address [address] [place] [address] Care Team Providers Care Erisa Attorney Name Role Phone Rell Arguelles MD Primary Care Provider [phone] Active Problems Problem Noted Date Diagnosed Date Environmental and seasonal allergies 04/24/2023 Abnormal stress test 11/03/2022 Overview (11/03/2022): Added automatically from request for surgery [id number] Dyslipidemia, goal LDL below 70 10/25/2018 Asthma [...] Kerma 442 mGy 0 mGy 442 mGy Fluoro Time 9.4 Minutes 0 Minutes 9.4 Minutes
--- OUTSIDE RECORDS SUMMARY | 2025-05-29 10:35 | XMS_ITS | Clinical Summary ---
Author Organization [facility] Address [address] [place] [address] Care Team Providers Care Law Enforcement Officer Name Role Phone Yasmany Noonan MD Primary Care Provider [phone] Immunizations Immunization Administration Dates Next Due Influenza, [...] of Treatment Not on file Care Teams Law Enforcement Officer Relationship Specialty Start Date End Date Yasmany Noonan MD [address] [id number] PCP - General 12/11/20
== END 2025-05-29 23:59 | disposition home or self-care (01) ==
LOC: RAD 10:09
PROVIDERS: PCP Internal Medicine; Visit Provider Internal Medicine
DX: Z12.31 Encounter for screening mammogram for malignant neoplasm of breast (principal); R92.323 Mammographic fibroglandular density, bilateral breasts; Z80.3 Family history of malignant neoplasm of breast
CPT/HCPCS: 77063; 77067

== ENCOUNTER 2025-07-01 08:55 | Outpatient (CLI) | payer MEDICARE, OTHER, SELFPAY ==
--- OUTSIDE RECORDS SUMMARY | 2023-10-23 08:29 | XMS_ITS | Encounter Summary ---
[facility] Address [address] [place] [address] Care Team Providers Care Mangle Press Catcher Name Role Phone Rell Arguelles MD Primary Care Provider [phone] Encounter Details Date Type Department Care Team (Late st Contact Info) Description 10/23/2023 9:29 AM EDT Hospital Encounter [facility] [address] [place] [id number] Social History Tobacco Use Types Packs/Day Years Used Date Smoking Tobacco: Former Cigarettes 1 20 0 10/25/1978 - 10/25/1998 Smokeless Tobacco: Never Alcohol Use Standard Drinks/Week Comments Yes 0 (1 standard drink = 0.6 oz pur e alcohol) socially AUDIT-C Answer Date Recorded Q1: How often do you have a drink containing alcohol? Never 11/09/2022 Q2: How many drinks containi ng alcohol do you have on a typical day when you are drinking? Patient does not drink Q3: How often do you have si x or more drinks on one occasion? Never 11/09/2022 PHQ-2 Answer Date Recorded Retired PHQ-9: Brief Depression Severity Measure Score 0 10/18/2022 Abuse Screen Answer Date Recorded Feels Unsafe at Home or Work/School no 11/09/2022 Feels Threatened by Someone no 10/29 Does Anyone Try to Keep You From Having Contact with Others or Doing Things Outside Your Home? no 11/09/2022 Physical Signs of Abuse Present no 11/09/2022 Housing Stability Answer Date Recorded Current Living Arrangements home 10/29 Potentially Unsafe Housing Conditions Not on babita e 11/09/2022 Disabilities Answer Date Recorded Difficulty Concentrating, Remembering or Making Decisions no 11/09/2022 Difficulty Managing Errands Independently no 11/09/2022 PHQ-2 Answer Date Recorded Retired PHQ-9: Brief Depression Severity Measure Score 0 10/18/2022 Comments No Sex and Gender Information Value Date Recorded Sex Assigned at Not on file Legal Sex Female 1:54 PM EDT Gender Identity Not on file Sexual Orientation Not on file documented as of this encounter Plan of Treatment Upcoming Encounters Date Type Department Care Team (Late st Contact Info) Description 10/23/2025 10:45 AM EDT Registration [facility] [address] [place] [address] 10/23/2025 11:00 AM EDT Office Visit [facility] [address] [place] [address] 10/23/2025 11:30 AM EDT Office Visit [facility] [address] [place] [address] Chiquis Mcqueen, LENS BLOCK GAUGER [address] [place] [address] 04/27/2026 1:45 PM EDT Office Visit [facility] C[facility]OLOGY [address] [facility] [address] [place] [address] Debbie Al, LENS BLOCK GAUGER [address] [facility] [address] [place] [address] documented as of this encounter Procedures Procedure Name Priority Date/Time Associated Diagnosis Comments XR CHEST PA AND LATERAL Routine 10/23/2023 9:33 AM EDT Chronic obstructive pulmonary disease, unspecified COPD type documented in this encounter Results * XR Chest PA & Lateral (10/23/2023 9:33 AM EDT) Anatomical Region Laterality Modality Body, Chest N/A Radiographic Traci ging 10/23/2023 3:35 PM EDT Impressions 10/23/2023 3:39 PM EDT Impression: No acute cardiopulmonary findings. Electronically Signed: Tenzin Miranda MD 10/23/2023 3:39 PM EDT Workstation ID: [id number] Narrative 10/23/2023 3:39 PM EDT XR CHEST PA AND LATERAL Date of Exam: 10/23/2023 9:29 AM EDT Indication: COPD/HX Adenocarcinoma of left lung Comparison: Chest CT 10/18/2022 Findings: Normal cardiomediastinal silhouette. There is some sutures and small linear scarring in the left lower lobe. The lungs are clear without focal consolidation. No pleural effusion or pneumothorax. No acute osseous findings. There is mild biapical pleuroparenchymal scarring/thickening. Procedure Note Tenzin Miranda MD - 10/23/2023 XR CHEST PA AND LATERAL Date of Exam: 10/23/2023 9:29 AM EDT Indication: COPD/HX Adenocarcinoma of left lung Comparison: Chest CT 10/18/2022 Findings: Normal cardiomediastinal silhouette. There is some sutures and smalllinear scarring in the left lower lobe. The lungs are clear without focalconsolidation. No pleural effusion or pneumothorax. No acute osseousfindings. There is mild biapical pleuroparenchymal scarring/thickening. IMPRESSION: Impression: No acute cardiopulmonary findings. Electronically Signed: Tenzin Miranda MD 10/23/2023 3:39 PM EDT Workstation ID: [id number] Chiquis Mcqueen APRN IMG DIAGNOSTIC IMAGING ORDER MAIN Final Result documented in this encounter Visit Diagnoses Not on filedocumented in this encounter Care Teams Mangle Press Catcher Relationship Specialty Start Date End Date Rell Arguelles MD [address] [place] [facility] [address] [place] [address] PCP - General Internal Medicine 10/16/18 documented as of this encounter
--- OUTSIDE RECORDS SUMMARY | 2024-10-22 09:10 | XMS_ITS | Encounter Summary ---
[facility] [address] [place] [address] Care Team Providers Care Carbon Paper Coating Supervisor Name Role Phone Rell Arguelles MD Primary Care Provider Encounter Details Date Type Department Care Team (Late st Contact Info) Description 10/22/2024 10:10 AM EDT Hospital Encounter [facility] PULMONARY & CRITICAL CARE MEDICINE [address] [place] [phone] Social History Tobacco Use Types Packs/Day Years [...] Info) Description 10/23/2025 10:45 AM EDT Registration [facility] PULMONARY & CRITICAL CARE MEDICINE [address] [place] [address] 10/23/2025 11:00 AM EDT Office Visit [facility] PULMONARY & CRITICAL CARE MEDICINE [address] [place] [address] 10/23/2025 11:30 AM EDT Office Visit [facility] PULMONARY & CRITICAL CARE MEDICINE [address] [place] [address] Chiquis Mcqueen, REWRITE EDITOR [address] [place] [address] 04/27/2026 1:45 PM EDT Office Visit [facility] CARDIOLOGY [address] [facility] [address] [place] [address] Debbie Al, REWRITE EDITOR [address] [facility] [address] [place] [address] documented as of this encounter Procedures Procedure Name Priority Date/Time Associated Diagnosis Comments XR CHEST PA AND LATERAL Routine 10/22/2024 10:10 AM EDT Chronic obstructive pulmonary disease, unspecified COPD type documented in this encounter Results * XR Chest PA & Lateral (10/22/2024 10:10 AM EDT) Anatomical Region Laterality Modality Body, Chest N/A Radiographic Traci ging 10/25/2024 2:00 PM EDT Impressions 10/25/2024 2:01 PM EDT Impression: No acute cardiopulmonary disease. Electronically Signed: Thai Barreto MD 10/25/2024 2:01 PM EDT Workstation ID: [id number] Narrative 10/25/2024 2:01 PM EDT XR CHEST PA AND LATERAL Date of Exam: 10/22/2024 10:10 AM EDT Indication: COPD Comparison: 10/18/2022 Findings: No focal consolidation. No pneumothorax or pleural effusion. Atheromatous disease of the aortic arch. Cardiac size is normal. No displaced rib fractures. The clavicles are intact. The visualized upper abdomen is normal. The thoracic vertebral body height and alignment is normal. No lytic or blastic bony diseases. Procedure Note Thai Barreto MD - 10/25/2024 XR CHEST PA AND LATERAL Date of Exam: 10/22/2024 10:10 AM EDT Indication: COPD Comparison: 10/18/2022 Findings: No focal consolidation. No pneumothorax or pleural effusion.Atheromatous disease of the aortic arch. Cardiac size is normal. Nodisplaced rib fractures. The clavicles are intact. The visualized upperabdomen is normal. The thoracic vertebral body height and alignment is normal. No lytic or blastic bony diseases. IMPRESSION: Impression: No acute cardiopulmonary disease. Electronically Signed: Thai Barreto MD 10/25/2024 2:01 PM EDT Workstation ID: [id number] Chiquis Mcqueen APRN IMG DIAGNOSTIC IMAGING ORDER MAIN Final Result documented in this encounter Visit Diagnoses Not on filedocumented in this encounter Care Teams Carbon Paper Coating Supervisor Relationship Specialty Start Date End Date Rell Arguelles MD [address] [place] [facility] [address] [place] [address] PCP - General Internal Medicine 10/16/18 documented as of this encounter
[2025-07-01 15:34] LABS: Alanine Aminotransferase 21 U/L (12-78); Albumin Level 4.3 g/dl (3.5-5.0); Albumin/Globulin Ratio 1.7 (1.1-1.8); Alkaline Phosphatase 70 U/L (38-126); Anion Gap 7.9 mEq/L (5-15); Aspartate Amino Transferase 26 U/L (14-36); Bilirubin,Total 0.6 mg/dl (0.2-1.3); Blood Urea Nitrogen 15 mg/dl (7-17); Calcium 10.1 mg/dl (8.4-10.2); Carbon Dioxide 33 mmol/L (22.0-30.0); Chloride 96 mmol/L (98-107); Cholesterol 186 mg/dl (140-200); Creatinine,Serum 0.90 mg/dl (0.52-1.04); Estimated Glomerular Filt Rate 61 ml/min (>60); GFR (African American) 73 ML/MIN (>60); Globulin 2.6 g/dL (1.3-3.2); Glucose 75 mg/dl (74-100); HDL Cholesterol 74 mg/dl (40-60); Potassium 4.9 mmoL/L (3.5-5.1); Sodium 132 mmol/L (136-145); Total Protein,Serum 6.9 g/dl (6.3-8.2); Triglycerides 173 mg/dl (30-150)
--- OUTSIDE RECORDS SUMMARY | 2025-07-02 10:11 | XMS_ITS ---
Author Organization Unknown ENCOUNTERS Encounter Performer Location Date Diagnosis Diagnosis Status Emergency [address] [place] [address] [id number] [place] Pre Admit [address] [place] [address] [id number] Emergency [facility] (ED) [address] [place] [address] [id number] [place] [facility] [address] [place] [address] [id number] [place] [facility] [address] [place] [address] [id number] [place] *Note: Encounters from your own facility or health system may be excluded. Allergies, Adverse Reactions, Alerts Allergen Type Severity Identification Date Medications Name Date Quantity Days Supplied GPI Number
--- OUTSIDE RECORDS SUMMARY | 2025-07-02 10:11 | XMS_ITS | Clinical Summary ---
Author Organization [facility] Address [address] [place] [address] Care Team Providers Care Mechanic Welder Name Role Phone Rell Arguelles MD Primary Care Provider [phone] Allergies No known active allergies Medications aspirin [...] (11/03/2022): Added automatically from request for surgery [id number] Dyslipidemia, goal LDL below 70 10/25/2018 Asthma [...] Description 04/21/2025 1:30 PM EDT Office Visit [facility] C[facility] [address] [place] [address] Yasmany Prasad MD Coronary artery disease involving tangirnaq coronary artery of tangirnaq heart without angina pectoris (Primary Dx); Primary [...] Info) Description 10/23/2025 10:45 AM EDT Registration [facility] PULMONARY & CRITICAL CARE MEDICINE [address] [place] [address] 10/23/2025 11:00 AM EDT Office Visit [facility]UL[facility] MEDICINE [address] [place] [address] 10/23/2025 11:30 AM EDT Office Visit [facility] PULMONARY [facility] CRITICAL CARE MEDICINE [address] [place] [address] Chiquis Mcqueen, PROFESSIONAL BUILDER [address] [place] [address] 04/27/2026 1:45 PM EDT Office Visit [facility] [address] [facility] [address] [place] [address] Debbie Al, PROFESSIONAL BUILDER [address] [facility] [address] [place] [address] Health Maintenance Due Date Last Done Comments [...] 12-LEAD Routine 04/21/2025 Coronary artery disease involving tangirnaq coronary artery of tangirnaq heart without angina pectoris LIPID PANEL STAT [...] from the original note were not included. [facility] Cardiology [address] [place] [address], [address] [place], [place], [id number] WWW.[facility] HEBRONExterityPEMISC[facility] FOLLOW UP NOTE Patient Care [...] Coronary Artery Disease Coronary artery disease involving tangirnaq coronary artery of tangirnaq heartwithout angina pectoris HPI: Michaelle Smith is a 79 y.o. female. Cardiac focused problem list: Coronary artery disease: Stress test on 05/14/2015, reversible perfusion defect in the LADterritory, EF 64%. Left heart catheterization 06/12/2015, bare metal stent to mid-LAD. Stress test 11/01/2022: Small-sized, moderately severe area of ischemialocated in the anterior wall. Intermediate risk study. [facility], 11/09/2022: 50% ostial LAD stenosis as well [...] - 200 mg/dL 11/09/2022 8:21 AM EDT [facility] Triglycerides 132 0 - 150 mg/dL 11/09/2022 8:21 AM EDT [facility] HDL Cholesterol 59 40 - 60 mg/dL 11/09/2022 8:21 AM EDT [facility] LDL Cholesterol 80 0 - 100 mg/dL 11/09/2022 8:21 AM EDT [facility] VLDL Cholesterol 23 5 - 40 mg/dL 11/09/2022 8:21 AM EDT [facility] LDL/HDL Ratio 1.30 11/09/2022 8:21 AM EDT [facility] Blood Line / Unknown 11/09/2022 7: 24 AM EDT 11/09/2022 7:38 AM EDT Narrative [facility] - 11/09/2022 8:21 AM [...] APRN LAB BLOOD ORDERABLES Final R esult [facility]
[address] [place] [address], * CT Chest With Contrast Diagnostic (10/18/2022 [...] [place]o 10/18/2022 10:56 AM EDT Workstation ID: [id number] Narrative 10/18/2022 10:[address] CHEST [...] [place] 10/18/2022 10:56 AM EDT Workstation ID: [id number] Eva Marina APRN IMG CT ORDERABLES Final Resu lt from Last 3 Months or Most Recently Relevant to Health Maintenance Insurance MEDICARE A & [place] [employer] Advance Directives * CPR (Attempt to Resuscitate) (Latest Code Status on File) Date Activated Date Inactivated Comments 11/09/2022 11:54 AM 11/09/2022 7:29 PM Question Answer Comments Code Status (Patient has no pulse and is not breathing): CPR (Attempt to Resuscitate) Medical Interventions (Patie nt has pulse or is breathing): Full Level Of Support Discussed With: Patient Care Teams Mechanic Welder Relationship Specialty Start Date End Date Rell Arguelles MD [address] [facility] [address] [place] [address] PCP - General Internal Medicine 10/16/18
--- OUTSIDE RECORDS SUMMARY | 2025-07-02 10:11 | XMS_ITS | Clinical Summary ---
Author Organization [facility] Address [address] [place] [address] Care Team Providers Care Packer Inspector Name Role Phone Yasmany Noonan MD Primary Care Provider [phone] Immunizations Immunization Administration Dates Next Due Influenza, [...] of Treatment Not on file Care Teams Packer Inspector Relationship Specialty Start Date End Date Yasmany Noonan MD [address] [place] [address] PCP - General 12/11/20
--- OUTSIDE RECORDS SUMMARY | 2025-07-02 10:11 | XMS_ITS ---
Author Organization [facility] Address [address] [place] [address] Care Team Providers Care Trainer Name Role Phone Rell Arguelles MD Primary Care Provider [phone] Active Problems Problem Noted Date Diagnosed Date Environmental and seasonal allergies 04/24/2023 Abnormal stress test 11/03/2022 Overview (11/03/2022): Added automatically from request for surgery [id number] Dyslipidemia, goal LDL below 70 10/25/2018 Asthma [...]
== END 2025-07-01 23:59 ==
LOC: LAB.DROPOF 07-02 10:09
PROVIDERS: PCP Internal Medicine; Visit Provider Internal Medicine
DX: E78.5 Hyperlipidemia, unspecified (principal); I10 Essential (primary) hypertension; I25.10 Atherosclerotic heart disease of native coronary artery without angina pectoris
CPT/HCPCS: 80053; 80061

== ENCOUNTER 2025-07-21 12:00 | Outpatient (CLI) | payer MEDICARE, OTHER, SELFPAY ==
--- OUTSIDE RECORDS SUMMARY | 2023-10-23 08:29 | XMS_ITS | Encounter Summary ---
[facility] [address] [place] [address] Care Team Providers Care Last Repairer Name Role Phone Rell Arguelles MD Primary Care Provider Encounter Details Date Type Department Care Team (Late st Contact Info) Description 10/23/2023 9:29 AM EDT Hospital Encounter [facility] MEDICINE [address] [place] [id number] Social History Tobacco Use Types Packs/Day Years [...] Info) Description 10/23/2025 10:45 AM EDT Registration [facility] MEDICINE [address] [place] [address] 10/23/2025 11:00 AM EDT Office Visit [facility] MED[facility] [address] [place] [address] 10/23/2025 11:30 AM EDT Office Visit [facility] MEDICINE [address] [place] [address] Chiquis Mcqueen, MIDDLE SCHOOL ASSISTANT PRINCIPAL [address] [place] [address] 04/27/2026 1:45 PM EDT Office Visit [facility] [address] [facility] [address] [place] [address] Debbie Al, MIDDLE SCHOOL ASSISTANT PRINCIPAL [address] [facility] [address] [place] [address] documented as of this encounter Procedures Procedure [...] MD 10/23/2023 3:39 PM EDT Workstation ID: [id number] Narrative 10/23/2023 3:39 PM EDT XR CHEST [...] MD 10/23/2023 3:39 PM EDT Workstation ID: [id number] Chiquis Mcqueen APRN IMG DIAGNOSTIC IMAGING ORDER MAIN Final Result documented in this encounter Visit Diagnoses Not on filedocumented in this encounter Care Teams Last Repairer Relationship Specialty Start Date End Date Rell Arguelles MD [address] [place] [address] [facility] [address] [place] [id number] PCP - General Internal Medicine 10/16/18 documented as of this encounter
--- OUTSIDE RECORDS SUMMARY | 2024-10-22 09:10 | XMS_ITS | Encounter Summary ---
[facility] [address] [place] [address] Care Team Providers Care Electrical Research Engineer Name Role Phone Rell Arguelles MD Primary Care Provider [phone] Encounter Details Date Type Department Care Team (Late st Contact Info) Description 10/22/2024 10:10 AM EDT Hospital Encounter [facility] PULMONARY & CRITICAL CARE MEDICINE [address] [place] [id number] Social History Tobacco Use Types Packs/Day Years [...] Info) Description 10/23/2025 10:45 AM EDT Registration [facility] PULMONARY & CRITICAL CARE MEDICINE [address] [place] [address] 10/23/2025 11:00 AM EDT Office Visit [facility] PULMONARY & CRITICAL CARE MEDICINE [address] [place] [address] 10/23/2025 11:30 AM EDT Office Visit [facility] PULMONARY & CRITICAL CARE MEDICINE [address] [place] [address] Chiquis Mcqueen, PANEL CUTTER [address] [place] [address] 04/27/2026 1:45 PM EDT Office Visit [facility] CARDIOLOGY [address] [facility] [address] [place] [address] Debbie Al, PANEL CUTTER [address] [facility] [address] [place] [address] documented as of this encounter Procedures Procedure [...] MD 10/25/2024 2:01 PM EDT Workstation ID: [id number] Narrative 10/25/2024 2:01 PM EDT XR CHEST [...] MD 10/25/2024 2:01 PM EDT Workstation ID: [id number] Chiquis Mcqueen APRN IMG DIAGNOSTIC IMAGING ORDER MAIN Final Result documented in this encounter Visit Diagnoses Not on filedocumented in this encounter Care Teams Electrical Research Engineer Relationship Specialty Start Date End Date Rell Arguelles MD [address] [place] [facility] [address] [place] [address] PCP - General Internal Medicine 10/16/18 documented as of this encounter
[2025-07-21 16:36] LABS: Chloride 97 mmol/L (98-107); Sodium 136 mmol/L (136-145)
[2025-07-21 16:37] LABS: Potassium 4.6 mmoL/L (3.5-5.1)
[2025-07-21 16:40] LABS: Anion Gap 11.6 mEq/L (5-15); Blood Urea Nitrogen 14 mg/dl (7-17); Calcium 9.8 mg/dl (8.4-10.2); Carbon Dioxide 32 mmol/L (22.0-30.0); Creatinine,Serum 1.00 mg/dl (0.52-1.04); Estimated Glomerular Filt Rate 54 ml/min (>60); GFR (African American) 65 ML/MIN (>60); Glucose 70 mg/dl (74-100)
--- OUTSIDE RECORDS SUMMARY | 2025-07-22 12:54 | XMS_ITS ---
Laboratory report Created on: July 01, 2025 GARRY FUNEZ : 1945 Sex: Female Author Organization Unknown PROBLEMS Problems List Code Description RESULTS Laboratory Orders Date Order Code Test 2024-12-30 [id number] 1,25-DIHYDROXY,V ITAMIN D BY MS Laboratory Results Date LOINC Test Value Unit Reference Range Interpre tation 2024-12-30 [id number] TOTAL 1,25-DIHYDROXY,VITAMIN D 26 PG/ML 2024-12-30 [id number] 1,25-DIHYDROXY, VITAMIN D-2 <10 PG/ML 2024-12-30 1649-3 1,25-DIHYDROXY, VITAMIN D-3 25 PG/ML
--- OUTSIDE RECORDS SUMMARY | 2025-07-22 12:54 | XMS_ITS | Clinical Summary ---
Author Organization [facility] Address [address] [place] [address] Care Team Providers Care Special Procedures Nurse Name Role Phone Yasmany Noonan MD Primary Care Provider [phone] Immunizations Immunization Administration Dates Next Due Influenza, [...] of Treatment Not on file Care Teams Special Procedures Nurse Relationship Specialty Start Date End Date Yasmany Noonan MD [address] [place] [address] PCP - General 12/11/20
--- OUTSIDE RECORDS SUMMARY | 2025-07-22 12:54 | XMS_ITS | Clinical Summary ---
Author Organization [facility] Address [address] [place] [address] Care Team Providers Care Manager Safe Name Role Phone Rell Arguelles MD Primary Care Provider [phone] Allergies No known active allergies Medications aspirin [...] (11/03/2022): Added automatically from request for surgery [id number] Dyslipidemia, goal LDL below 70 10/25/2018 Asthma [...] from the original note were not included. Immunizations Immunization Administration Dates Next Due 31-influenza [...] Info) Description 10/23/2025 10:45 AM EDT Registration [facility] PULMONARY & CRITICAL CARE MEDICINE [address] [place] [address] 10/23/2025 11:00 AM EDT Office Visit [facility] PULMONARY & CRITICAL CARE MEDICINE [address] [place] [address] 10/23/2025 11:30 AM EDT Office Visit [facility] PULMONARY & CRITICAL CARE MEDICINE [address] [place] [address] Chiquis Mcqueen, PLASTIC CABLEMAKING MACHINE OPERATOR [address] [place] [address] 04/27/2026 1:45 PM EDT Office Visit [facility] [address] [facility] [address] [place] [address] Debbie Al, PLASTIC CABLEMAKING MACHINE OPERATOR [address] [facility] [address] [place] [address] Health Maintenance Due Date Last Done Comments [...] COVID-19 Vaccine (8 - Modern a risk season) 2025 05/14/2024, 07/05/2023, 08/17/2022, Additional history [...] Procedure Name Priority Date/Time Associated Diagnosis Comments LIPID PANEL STAT 11/09/2022 7:[address] CHEST W CONTRAST STAT 10/18/2022 1 0:13 AM EDT Adenocarcinoma of left lung from Last 3 Months or Most Recently Relevant to Health Maintenance Results * Lipid Panel (11/09/2022 7:24 AM EDT) Total Cholesterol 162 0 - 200 mg/dL 11/09/2022 8:21 AM EDT [facility] Triglycerides 132 0 - 150 mg/dL 11/09/2022 8:21 AM EDT [facility] HDL Cholesterol 59 40 - 60 mg/dL 11/09/2022 8:21 AM EDT [facility] LDL Cholesterol 80 0 - 100 mg/dL 11/09/2022 8:21 AM EDT [facility] VLDL Cholesterol 23 5 - 40 mg/dL 11/09/2022 8:21 AM EDT [facility] LDL/HDL Ratio 1.30 11/09/2022 8:21 AM EDT [facility] Blood Line / Unknown 11/09/2022 7: 24 AM EDT 11/09/2022 7:38 AM EDT Narrative [facility] - 11/09/2022 8:21 AM EDT [...] High 160-189 mg/dL Very High >189 mg/dL Debbie Al PLASTIC CABLEMAKING MACHINE OPERATOR LAB BLOOD ORDERABLES Final R esult [facility]
[address] [place] [address], * CT Chest With Contrast Diagnostic (10/18/2022 [...] Lindo 10/18/2022 10:56 AM EDT Workstation ID: [id number] Narrative 10/18/2022 10:[address] CHEST [...] [place]o 10/18/2022 10:56 AM EDT Workstation ID: [id number] Eva Marina PLASTIC CABLEMAKING MACHINE OPERATOR IMG CT ORDERABLES Final Resu lt from Last 3 Months or Most Recently Relevant to Health Maintenance Insurance MEDICARE A & [employer] [place] Advance Directives * CPR (Attempt to Resuscitate) (Latest Code Status on File) Date Activated Date Inactivated Comments 11/09/2022 11:54 AM 11/09/2022 7:29 PM Question Answer Comments Code Status (Patient has no pulse and is not breathing): CPR (Attempt to Resuscitate) Medical Interventions (Patie nt has pulse or is breathing): Full Level Of Support Discussed With: Patient Care Teams Manager Safe Relationship Specialty Start Date End Date Rell Arguelles MD [facility] [address] [facility] [address] [place] [address] PCP - General Internal Medicine 10/16/18
--- OUTSIDE RECORDS SUMMARY | 2025-07-22 12:54 | XMS_ITS ---
Author Organization [facility] Address [address] [place] [address] Care Team Providers Care Service Technician Name Role Phone Rell Arguelles MD Primary Care Provider [phone] Active Problems Problem Noted Date Diagnosed Date Environmental and seasonal allergies 04/24/2023 Abnormal stress test 11/03/2022 Overview (11/03/2022): Added automatically from request for surgery [id number] Dyslipidemia, goal LDL below 70 10/25/2018 Asthma [...]
== END 2025-07-21 23:59 | disposition home or self-care (01) ==
LOC: LAB.DROPOF 07-22 12:52
PROVIDERS: PCP Internal Medicine; Visit Provider Internal Medicine
DX: R79.89 Other specified abnormal findings of blood chemistry (principal)
CPT/HCPCS: 80048